=== PATIENT | female | born 1970 | race African-American/Black ===

== ENCOUNTER 2016-11-17 10:33 | Inpatient (IN) | payer OTHER ==
[2016-11-17] VITALS (7 sets, daily range): BP systolic 131–180; BP diastolic 48–100
[~2016-11-17] VITALS: Ht 182.8 cm; Wt 156.0 kg
--- NOTE | ~2016-11-17 | CON ---
[place], [place] REPORT OF CONSULTATION NAME: JM COLUNGA [facility] #: [id number] UNIT #: [id number] ROOM: 428 DOCTOR: FRED PRATT MD BIRTHDATE: [birth year] DOS: 11/18/2016 CONSULTING PHYSICIAN: Misty Yuen D.O. PRIMARY CARE PHYSICIAN: Camilla Hall D.O. REASON FOR CONSULTATION: Chest pain. HISTORY OF PRESENT ILLNESS: This is a 46-year-old patient with history of hypertension, dyslipidemia, obesity, acid reflux; came to the Emergency Room with chest pain. Her pain started about one and half days ago prior to her presentation. She described the pain as a sharp pain in the midsternal area that radiated to the right side of her neck and throat area. She also has some associated headache and jaw pain. This pain mostly comes at rest and last for a few minutes up to a few hours. Last night, this pain got worse and finally, she came to the Emergency Room and she was admitted to the hospital and a Cardiology was consulted for her chest pain. She did not have any recent stress test. Her echo, which was done by Dr. Meza showed normal LV function. She also has some occasional heartburn and acid reflux. No nausea, vomiting, diarrhea, no palpitations. No PND or orthopnea. She did have mild exertional dyspnea, possibly due to her obesity. No fever or chills. No cough, no hemoptysis, no headaches. REVIEW OF SYSTEMS: Review of the 8 systems negative except as mentioned above. PAST MEDICAL HISTORY: 1. Hypertension. 2. Dyslipidemia. 3. Obesity. 4. Acid reflux. 5. Bipolar disorder. 6. Sjogren syndrome. 7. Depression. 8. Vitamin D deficiency. PAST SURGICAL HISTORY: History of elbow surgery. SOCIAL HISTORY: The patient does smoke nor does not use any illicit drugs, does drink occasionally. FAMILY HISTORY: Father around 60 from myocardial infarction and also stroke. Mother in her 60s with myocardial infarction. She had hypertension and chronic kidney disease. ALLERGIES: THE PATIENT IS ALLERGIC TO AMLODIPINE AND CLINDAMYCIN. MEDICATIONS: Current medications reviewed. PHYSICAL EXAMINATION: VITAL SIGNS: Blood pressure 162/101, pulse 98, respiratory rate 18, weight was [place], [place] REPORT OF CONSULTATION NAME: JM COLUNGA UNIT #: [id number] ROOM: 428 DOCTOR: SANTA DAILEY,FRED BIRTHDATE: [birth year] 156.1 kilograms. BMI 46.7. REVIEW OF THE DIAGNOSTIC TESTS: EKG showed normal sinus rhythm, low voltage complexes, poor R-wave progression, and nondiagnostic ST elevation in inferior leads. Labs including cardiac enzymes negative. Hemoglobin 13.3, platelets 193. Creatinine 1.2, potassium 3.7. IMPRESSION: 1. Chest pain, atypical, myocardial infarction ruled out. 2. Hypertension. I will adjust the medication for blood pressure. 3. Tobacco smoking. 4. Dyslipidemia. 5. Morbid obesity. 6. Acid reflux and abdominal pain. 7. Sjogren syndrome. 8. History of bipolar disorder. RECOMMENDATIONS: Continue current medications. Lexiscan stress test today. Monitor her blood pressures and adjust the medications as needed. Aggressive risk factor modification for diet, exercise, weight loss, as well as to quit smoking discussed. Further recommendations based on above testing. If the stress test is unremarkable, she was scheduled for upper endoscopy due to her symptoms of abdominal pain and acid reflux. Thank you, Dr. Yuen, for asking us to see this patient and we will follow the case along with you. FRED PRATT MD CM:CONSTR:REPORT OF CONSULTATION 2328 11/19/16 1014 interface
--- NOTE | ~2016-11-17 | ST ---
[place], [place] EXERCISE STRESS TEST REPORT NAME: JM COLUNGA LOCATED [facility]IN [facility] #: [id number] UNIT #: [id number] ROOM: 428 DOCTOR: SANTA DAILEY,FRED BIRTHDATE: [birth year] DOS: 11/18/2016 LEXISCAN STRESS TEST REASON FOR TEST: Evaluation of chest pain. PHYSICAL EXAMINATION NECK: Supple. LUNGS: Clear anteriorly. HEART: Regular rhythm. PROTOCOL: Lexiscan protocol. Maximum heart rate 87, peak blood pressure 136/90. SYMPTOMS: The patient is chest pain free. EKG: Resting EKG shows sinus rhythm with poor R-wave progression. The stress EKG showed no ischemia, no arrhythmias. CONCLUSION: Clinically, the patient is chest pain free. EKG, no ischemia. POST-STRESS COMPLICATIONS: None. The patient received a total of 0.4 mg Lexiscan. FRED PRATT MD CM:STRESS:EXERCISE STRESS TEST REPORT [id number] FRED PRATT MD
--- NOTE | ~2016-11-17 | CON ---
[place], [place] RE[facility] OF CON[facility]ATION [id number] #: [id number] ROOM: 428 DOCTOR: JOSE DAILEYFABIOSUE BIRTHDATE: [birth year] DOS: 11/18/2016 HISTORY OF PRESENT ILLNESS: This is a 46-year-old patient who has presented with chief complaint of epigastric abdominal pain consistent with atypical chest pain; however, she has to have myocardial evaluation done to assure there is no cardiac element and her myocardial perfusion scan in summary shows no evidence of ischemia. Ejection fraction 65%. Troponin was negative. CPK-MB and troponin was reassessed. Chest x-ray was no acute process. Comprehensive metabolic panel, BUN and creatinine 7 and 1.20. Electrolytes were balanced. Liver function tests and troponin were negative. INR was 0.7. CBC, white blood cells 5.6, H and H of 13 and 39. Differential within normal limits. PAST MEDICAL HISTORY: Associated with morbid obesity, hyperlipidemia, hypertension, atypical chest pain, gastroesophageal reflux, and bipolar disorder. PAST SURGICAL HISTORY: Elbow repair. SOCIAL HISTORY: Smoker and consumer of 6-8 cans of carbonated soda pam hoda. FAMILY HISTORY: Noncontributory except cardiac issues of myocardial infarction, hypertension. ALLERGIES: Norvasc and clindamycin. REVIEW OF MEDICATIONS: Consistent with iron supplementation and other medications as reviewed including Prilosec 40 mg daily as well as Zofran b.i.d. for nausea. REVIEW OF SYSTEMS: HEENT: Denies double vision, blurred vision. RESPIRATORY: Denies acute shortness of breath. CARDIOVASCULAR: Denies acute chest pain. DIGESTIVE SYSTEM: Epigastric abdominal pain, nausea, constipation, atypical chest pain. PHYSICAL EXAMINATION: HEENT: Head normocephalic, nontraumatic. Mouth and buccal mucosa benign. NECK: Supple, no thyromegaly, no cervical lymphadenopathy. CHEST: Symmetric anatomy, equal expansion. No wheeze, no rhonchi. ABDOMEN: Soft. No hepato-organomegaly. Epigastric distress. Bowel sounds present. No pulsatile mass. Abdomen is large, obese, internal organs were difficult to assess in general. EXTREMITIES: No cyanosis, no pedal edema. Dorsalis pedis and radial pulses intact. NEUROLOGIC: Alert, oriented to time, place, person. IMPRESSION: Atypical chest pain, ruling out hiatal hernia, gastroesophageal reflux, morbid obesity, hypertension, hyperlipidemia, nicotine dependency, [place], [place] REPORT OF CONSULTATION NAME: JM COLUNGA UNIT #: [id number] ROOM: 428 DOCTOR: BRANDON GARCIA MD BIRTHDATE: [birth year] consumer of large volume of carbonated sodas, bipolar disorder. PLAN AND DISCUSSION: We are going to consider endoscopic assessment on this patient. Meanwhile, we are preplanning as far as constipation is concerned, future assessment with sonographic evaluation of the gallbladder, liver, pancreas as well as colonoscopic assessment as outpatient. BRANDON GARCIA MD CM:CONSTR:REPORT OF CONSULTATION 1639 11/19/16 0500 interface
--- NOTE | ~2016-11-17 | O ---
[place], [place] OPERATIVE NOTE [id number] UNIT #: [id number] ROOM: 428 DOCTOR: BRANDON GARCIA MD BIRTHDATE: [birth year] DOS: 11/18/2016 INDICATIONS: This is a 46-year-old patient who was presented with chief complaint of epigastric abdominal pain, nausea, atypical chest pain, dyspepsia. The patient has been on Protonix and multiple medications. The patient with morbid obesity history, reflux symptomatology. PROCEDURE: Today's procedure part of investigation is panendoscopy plus biopsy. PREMEDICATION: Versed and Diprivan. SCOPE: Olympus forward-viewing gastroscope Q10 video. REPORT: After putting the patient in the left lateral position and after application of lubricant to the scope, the scope was introduced thereafter under direct visualization. I advanced through the length of the esophagus without difficulty. Small hiatal hernia was noticed. Gastric pouch was entered. Gastritis seen in the duodenal bulb, duodenitis and small duodenal ulcers noticed, photographed, biopsied. The patient was gradually extubated and tolerated the procedure well. IMPRESSION: Duodenal ulcers, small. Gastritis, mild. Small hiatal hernia. PLAN AND DISCUSSION: We are going to switch her from omeprazole 40 mg a day to Protonix 40 mg daily. Elevation of the head of the bed all time. Avoiding late eating. Gaviscon 2 tablets chew at bedtime and follow up routinely with you in office, p.r.n. visit with us in GI Clinic. Supportive management and workup as outpatient. BRANDON GARCIA MD CM:OPRECORD:OPERATIVE NOTE 1813 32 BRANDON GARCIA MD 11/18/162231 interface
[~2016-11-17 10:33] MED LIST: ALBUTEROL0.09 MG/Ac INH; ASPIRIN81 MG PO; AUGMENTIN 875 M1 TAB PO; CLINDAMYCIN HC300 MG PO; FIORICET 325 MG1 TAB PO; GABAPENTIN100 MG PO; GABAPENTIN600 MG PO; LATU40TA PO; LIPITOR20 MG PO; LISINOPRIL30 MG PO; LITHIUM CARBON450 M1 PO; LOMOTIL 0.025 M1 TA1 PO; LOPRESSOR25 MG PO; MACROBID100 M1 PO; MELOXICAM15 MG PO; MOTRIN800 MG PO; NORCO 5-325 TA1 EACH PO; POTASSIUM CITR10 MEQ PO; PRILOSEC40 M1 PO; SEROQUEL200 MG PO; SPIRONOLACT; VITAMIN D50000 IU PO; WELLBUTRIN SR150 MG PO; WELLBUTRIN XL150 MG PO; ZANAFLEX2 M1 PO; ZANTAC150 MG PO; ZOFRAN ODT4 MG SL
[2016-11-17] MEDS ORDERED: LYRICA50 M1 PO (10:37)
[2016-11-17 11:04] LABS: BASO % 0.4 % (0.0-1.0); EOS # 0.2 10*3/uL (0.0-0.4); HEMOGLOBIN 13.3 g/dl (12.0-16.0); LYMPH # 1.8 10*3/uL (1.3-4.4); LYMPH % 32.5 % (27.0-41.0); MEAN CELL VOLUME 89.7 fl (81.0-99.0); MEAN CORPUSCULAR HGB 30.6 pg (27.0-31.0); MEAN CORPUSCULAR HGB CONC 34.1 g/dl (33.0-37.0); MEAN PLATELET VOLUME 12.1 fl (9.6-12.3); MONO # 0.4 10*3/uL (0.1-1.0); MONO % 6.2 % (3.0-9.0); NEUT # 3.2 10*3/uL (2.3-7.9); NEUT % 57.5 % (47.0-73.0); PLATELET COUNT AUTOMATED 193 10*3/uL (130-400); RED BLOOD COUNT 4.35 10*6/uL (4.10-5.10); RED CELL DISTRI WIDTH 13.3 % (0-14.5); WHITE BLOOD COUNT 5.6 10*3/uL (4.8-10.8)
[2016-11-17 11:13] LABS: INTERNATIONAL NORM RATIO 0.9 (2.0-3.5)
[2016-11-17 11:22] LABS: ALBUMIN 3.1 gm/dl (3.1-4.5); ALKALINE PHOSPHATASE 112 U/L (45-117); BILIRUBIN, TOTAL 0.3 mg/dl (0.2-1.0); BUN 7 mg/dl (7-24); CARBON DIOXIDE 25 mmol/L (21-32); CHLORIDE 112 mmol/L (98-107); EST GLOM FILT AFRICAN AMERICAN 59 ml/min; GLUCOSE 92 mg/dL (65-99); MAGNESIUM 1.9 mg/dL (1.5-2.1); POTASSIUM 3.7 mmol/L (3.5-5.1); SGOT/AST 14 IU/L (3-35); SGPT/ALT 24 U/L (12-78); SODIUM 144 mmol/L (136-145); TOTAL PROTEIN 6.1 gm/dL (6.4-8.2); TROPONIN I < 0.015 ng/ml (<0.5)
[2016-11-17] MEDS ORDERED: VITAMIN D-32000 UNI1 PO (13:06)
[2016-11-17] MEDS ORDERED: IRON325 M2 PO (13:11)
[2016-11-17] MEDS ORDERED: ZOFRAN4 MG PO (13:12)
[2016-11-17] MEDS ORDERED: NORCO 5-325 TA1 EACH PO (13:12)
[2016-11-17] MEDS ORDERED: FIORICET 50-301 EACH PO (13:13)
[2016-11-17] MEDS ORDERED: Meclizine25 MG PO (13:14)
[2016-11-17] MEDS ORDERED: PROAIR HFA8.5 GM INH (13:15)
[2016-11-17] MEDS ORDERED: ALDACTONE25 MG PO (13:16)
[2016-11-17 18:49] LABS: CPK 51 U/L (26-192)
[2016-11-17 18:53] LABS: CKMB < 0.5 ng/ml (0.5-3.6); TROPONIN I < 0.015 ng/ml (<0.5)
[2016-11-18] VITALS (7 sets, daily range): BP systolic 138–166; BP diastolic 59–101
[2016-11-19] VITALS: BP 122/72
[2016-11-19 06:26] LABS: BUN 9 mg/dl (7-24); CARBON DIOXIDE 21 mmol/L (21-32); CHLORIDE 113 mmol/L (98-107); EST GLOM FILT AFRICAN AMERICAN > 60 ml/min; GLUCOSE 82 mg/dL (65-99); POTASSIUM 4.2 mmol/L (3.5-5.1); SODIUM 144 mmol/L (136-145)
[2016-11-19 08:00] VITALS: BP 135/72
[2016-11-19 12:00] VITALS: BP 128/86
[2016-11-19] MEDS ORDERED: GAVISCON 80 MG-1 CT1 PO (13:20)
== END 2016-11-19 15:15 | disposition home or self-care (01) | DRG 392 ==
LOC: ED 10:33 → EDHOLD 12:07 → 4E 12:07
PROVIDERS: Internal Medicine; Internal Medicine Cardiovascular Disease; Student in an Organized Health Care Education/Training Program
PROC: 0DB68ZX Excision of Stomach, Via Natural or Artificial Opening Endoscopic, Diagnostic (ICD-10-PCS; principal; 2016-11-18)
DX: K21.9 Gastro-esophageal reflux disease without esophagitis (principal); E44.0 Moderate protein-calorie malnutrition; K26.9 Duodenal ulcer, unspecified as acute or chronic, without hemorrhage or perforation; Z68.42 Body mass index [BMI] 45.0-49.9, adult; E66.01 Morbid (severe) obesity due to excess calories; M35.00 Sjogren syndrome, unspecified; F31.81 Bipolar II disorder; I10 Essential (primary) hypertension; E78.00 Pure hypercholesterolemia, unspecified; F17.200 Nicotine dependence, unspecified, uncomplicated; F31.9 Bipolar disorder, unspecified; E55.9 Vitamin D deficiency, unspecified; K29.70 Gastritis, unspecified, without bleeding; K44.9 Diaphragmatic hernia without obstruction or gangrene; Z88.8 Allergy status to other drugs, medicaments and biological substances; Z88.1 Allergy status to other antibiotic agents; Z79.82 Long term (current) use of aspirin; Z79.899 Other long term (current) drug therapy; Z82.49 Family history of ischemic heart disease and other diseases of the circulatory system; Z98.890 Other specified postprocedural states; Z82.3 Family history of stroke; Z84.1 Family history of disorders of kidney and ureter

== ENCOUNTER → 2017-03-19 | Outpatient (CLI) | payer OTHER ==
[~2017-03-19] MED LIST changes: +ALDACTONE25 MG PO; +FIORICET 50-301 EACH PO; +GAVISCON 80 MG-1 CT1 PO; +IRON325 M2 PO; +LYRICA50 M1 PO; +Meclizine25 MG PO; +PROAIR HFA8.5 GM INH; +VITAMIN D-32000 UNI1 PO; +ZOFRAN4 MG PO
== END | disposition home or self-care (01) ==
LOC: CARD 08:24
DX: Z01.818 Encounter for other preprocedural examination (principal); I10 Essential (primary) hypertension; I51.7 Cardiomegaly

== ENCOUNTER → 2018-05-27 | Outpatient (CLI) | payer OTHER | END | disposition home or self-care (01) | LOC: LAB 07:14 | DX: F31.75 Bipolar disorder, in partial remission, most recent episode depressed (principal) ==

== ENCOUNTER 2018-11-18 09:25 | Emergency (ER) | payer OTHER ==
[~2018-11-18] VITALS: Ht 182.8 cm; Wt 160.6 kg
--- NOTE | ~2018-11-18 | EKG ---
[place], [place] ELECTROCARDIOGRAM REPORT NAME: JM COLUNGA UNIT #: [id number] ROOM: DOCTOR: EPIPHANY DRAFT REPORT BIRTHDATE: [birth year] [facility] Test Date: 2018-11-18 Test Time: 09:53:04 Pat Name: JM COLUNGA Department: Room: Gender: F Production Weigher: Nani Soriano : 1970 Requested By: HUDSON RODGERS Order Number: [id number] Reading MD: Meño Meza MD Measurements Intervals [place] Rate: 72 P: 56 ME: 201 QRS: 35 QRSD: 79 T: 51 QT: 390 QTc: 427 Interpretive Statements Sinus rhythm Low voltage, precordial leads Electronically Signed On 11-19-2018 11:23:38 PST by Meño Meza MD CM:EKGRPT:ELECTROCARDIOGRAM REPORT [id number] HUDSON BARGER DRAFT REPORT HUDSON RODGERS MD
[2018-11-18 10:08] LABS: BUN 9 mg/dl (7-24); CHLORIDE 113 mmol/L (98-107); CREATININE 1.06 mg/dL (0.55-1.02); POTASSIUM 3.6 mmol/L (3.5-5.1); SODIUM 143 mmol/L (136-145)
[2018-11-18 10:09] LABS: TROPONIN I < 0.015 ng/ml (<0.045)
[2018-11-18 10:24] LABS: BILIRUBIN NEGATIVE (NEGATIVE); BLOOD 2+ (NEGATIVE); CLARITY SL CLOUDY (CLEAR); COLOR YELLOW (YELLOW); GLUCOSE NEGATIVE (NEGATIVE); KETONE NEGATIVE (NEGATIVE); LEUKO ESTERASE TRACE (NEGATIVE); NITRITE NEGATIVE (NEGATIVE); SPECIFIC GRAVITY <= 1.005 (1.005-1.030); UROBILINOGEN 0.2 E.U./dl (0.2-1.0)
[2018-11-18 10:36] LABS: BACTERIA TRACE; EPITHELIAL CELLS 21-30; YEAST TRACE
== END 2018-11-18 10:33 | disposition home or self-care (01) ==
LOC: ED 09:25
PROVIDERS: Emergency Medicine
DX: I10 Essential (primary) hypertension (principal); E66.01 Morbid (severe) obesity due to excess calories; Z88.1 Allergy status to other antibiotic agents; Z88.8 Allergy status to other drugs, medicaments and biological substances; Z79.899 Other long term (current) drug therapy; Z79.82 Long term (current) use of aspirin; Z68.42 Body mass index [BMI] 45.0-49.9, adult

== ENCOUNTER → 2018-12-07 | Outpatient (CLI) | payer OTHER ==
[~2018-12-07] MED LIST changes: +CLARITIN10 MG PO; +COLACE 2-IN-11 EACH PO; +LITHIUM CARB300 MG PO; +MOBIC15 MG PO; +OXYCODONE HYDROC5 MG PO; +Ondansetron4 MG PO; +PRILOSEC20 M1 PO; -PRILOSEC40 M1 PO; +TYLENOL325 M3 PO
== END | disposition home or self-care (01) ==
LOC: US 09:30
DX: I10 Essential (primary) hypertension (principal)

== ENCOUNTER 2019-01-30 19:36 | Inpatient (IN) | payer OTHER ==
[~2019-01-30] VITALS: Ht 167.6 cm; Wt 159.4 kg
--- NOTE | ~2019-01-30 | CON ---
[place], [place] REPORT OF CONSULTATION [id number] UNIT #: [id number] ROOM: 420 DOCTOR: HERMINIA PHD RYAN BIRTHDATE: [birth year] DOS: 02/04/2019 HISTORY OF PRESENT ILLNESS: The patient is a 48-year-old female referred by the hospitalist with concerns for catatonic behavior and appropriateness for inpatient psychiatric treatment. At the present time, the patient is on the 4th floor at [facility]. The patient states that she is and has one daughter. She is on disability for her history of intermittent explosive disorder and bipolar disorder. She sees Dr. aBr for this regularly. She denied alcohol and illegal drug use. She smokes 1 pack of cigarettes per week. PAST MEDICAL HISTORY: Bipolar 2 disorder, chronic kidney disease, duodenal ulcer, GERD, hypertension, hyperlipidemia, intermittent explosive disorder, major depression, morbid obesity, Sjogren syndrome, and vitamin D deficiency. MEDICATIONS: Dulcolax, Zofran, Wellbutrin-XL, Lipitor, Feosol, Ventolin, Prilosec, Claritin, vitamin D, Lopressor, aspirin, heparin, and Tylenol. MENTAL STATUS EXAMINATION: The patient was awake, alert, and lying in bed in no apparent distress. She was oriented to person and could name the year. Her mood was depressed and affect was blunted. She denied suicidal and homicidal ideation, plan, and intent. She denied history of inpatient psychiatric treatment. Speech was slow and she often responded with one word answers or nonverbally expressive. At times, the patient did not respond appropriately to questions and appeared confused. There was no evidence of hallucinations or delusions. There is no evidence of virgie. The patient denied a history of psychosis. The patient's roommate was present in the room and the patient indicated she wished her roommate stay. Her roommate often spoke for the patient and was reminded to let the patient answered for herself. The patient's roommate took me aside after the evaluation and stated that the patient's boyfriend broke up with her in November and got the next day. She found this information out on Facebook and has not talked to the patient about this. The patient had been in a relationship with her boyfriend for 5 years. Roommate thinks the patient has been depressed since that time. The patient's roommate states she has been regularly attending her therapy appointments and medication appointments at Dr. Bar' office except she has not seen him since she had knee surgery last month. The patient denies a need or desire for further psychiatric interventions at this time. DIAGNOSIS: Status bipolar 2 disorder, intermittent explosive disorder. PLAN: The patient is denying suicidal ideation, plan, and intent at this time; however, she continues to eat very little and appears to be neglecting her ADLs. Given that the patient is not seeking inpatient treatment at this time and is not suicidal, inpatient psychiatric treatment may not be appropriate for the patient at this time; however, she is engaging in self-injurious behaviors by not eating and would benefit from continued observation to ensure adequate nutrition. In my opinion, the patient's discharge plan to [facility] may be most beneficial at this time to continue to improve her physical functioning following her surgery and to continue to monitor her food intake and [place], [place] REPORT OF CONSULTATION NAME: JM COLUNGA UNIT #: [id number] ROOM: 420 DOCTOR: HERMINIA, PHD RYAN BIRTHDATE: [birth year] to continue to assess for risk of harm to self. Thank you very much for this consult. Veronica Murphy, PhD CM:CONSTR:REPORT OF CONSULTATION 1806 02/05/19 0120 interface
--- NOTE | ~2019-01-30 | EKG ---
[place], [place] ELECTROCARDIOGRAM REPORT NAME: JM COLUNGA UNIT #: [id number] ROOM: 420 DOCTOR: CHARBEL DRAFT REPORT BIRTHDATE: [birth year] [facility] Test Date: 2019-01-30 Test Time: 20:24:52 Pat Name: JM COLUNGA Department: Room: 420 Gender: F Mica Sizer: EKG.RI : 1970 Requested By: REGINALD DAVIS PA-C Order Number: [id number] Reading MD: Tierra Orellana MD Measurements Intervals [place] Rate: 94 P: 61 LA: 189 QRS: 30 QRSD: 96 T: 30 QT: 361 QTc: 452 Interpretive Statements Sinus rhythm Compared to ECG 11/18/2018 09:53:04 No significant changes Electronically Signed On 01-31-2019 17:38:57 PDT by Tierra Orellana MD CM:EKGRPT:ELECTROCARDIOGRAM REPORT 23 37 REGINALD DAVIS PA-C EPIPHANY DRAFT REPORT REGINALD DAVIS PA-C
[~2019-01-30 19:36] MED LIST changes: -CLARITIN10 MG PO; -COLACE 2-IN-11 EACH PO; -LITHIUM CARB300 MG PO; -MOBIC15 MG PO; -OXYCODONE HYDROC5 MG PO; -Ondansetron4 MG PO; -TYLENOL325 M3 PO
[2019-01-30 19:56] VITALS: BP 80/42
--- NOTE | 2019-01-30 20:00 | NUR ---
UNABLE TO ESTABLISED AN IV, SEVERAL ATTEMPTS HAVE BEEN MADE BY SEVERAL RN"S AND RESIDENT. WAITING FOR LAB RESULTS TO DETERMINE IF MLC IS NEEDED.
[2019-01-30 20:30] VITALS: BP 100/62
--- NOTE | 2019-01-30 21:30 | NUR ---
LAB IS MAKING SEVERAL ATTEMPTS TO DRAW BLOOD FOR LABS. A SMALL AMOUNT WAS OBTAINED.
--- NOTE | 2019-01-30 22:01 | NUR ---
PT IS STARTING TO WAKE UP A LITTLE AND IS NOT CONFUSED AT THIS TIME.
--- NOTE | 2019-01-30 22:24 | NUR ---
PT RESTING QUIETLY, VOICES NO COMPLAINTS. LAB WAS ABLE TO OBTAIN THE LABS.
[2019-01-30 22:36] LABS: BASO % 0.4 % (0.0-1.0); EOS # 0.4 10*3/uL (0.0-0.4); EOS % 5.1 % (1.0-4.0); HEMOGLOBIN 13.1 g/dl (12.0-16.0); LYMPH # 2.5 10*3/uL (1.3-4.4); LYMPH % 30.1 % (27.0-41.0); MEAN CORPUSCULAR HGB 30.7 pg (27.0-31.0); MEAN PLATELET VOLUME 13.3 fl (9.6-12.3); MONO # 0.5 10*3/uL (0.1-1.0); MONO % 5.6 % (3.0-9.0); NEUT # 4.8 10*3/uL (2.3-7.9); NEUT % 58.4 % (47.0-73.0); PLATELET COUNT AUTOMATED 205 10*3/uL (130-400); RED BLOOD COUNT 4.27 10*6/uL (4.10-5.10); RED CELL DISTRI WIDTH 14.5 % (0-14.5); WHITE BLOOD COUNT 8.2 10*3/uL (4.8-10.8)
[2019-01-30 22:39] LABS: ALBUMIN 3.6 gm/dl (3.1-4.5); ALKALINE PHOSPHATASE 117 U/L (45-117); BUN 39 mg/dl (7-24); CHLORIDE 120 mmol/L (98-107); CREATININE 3.21 mg/dL (0.55-1.02); SGOT/AST 30 IU/L (3-35); SGPT/ALT 20 U/L (12-78); SODIUM 143 mmol/L (136-145); TOTAL PROTEIN 7.5 gm/dL (6.4-8.2)
[2019-01-30 22:40] LABS: ACETAMINOPHEN (TYLENOL) < 5.0 ug/ml (10-30); SALICYLATE (ASA) < 1.7 mg/dl (2.8-20.0); TROPONIN I < 0.015 ng/ml (<0.045)
[2019-01-30 22:56] LABS: LITHIUM 1.98 MMOL/L (0.60-1.20)
[2019-01-31 01:29] VITALS: BP 100/58
[2019-01-31 01:49] VITALS: BP 109/57
--- NOTE | 2019-01-31 01:49 | NUR ---
A 48, admitted to , under the services of YOHAN You DO with a diagnosis of ACUTE RENAL FAILURE. Chief complaint is CHANEG IN MENTAL STATUS. Patient arrived via ambulance from ER. Monitor applied. Initial assessment completed. Vital signs taken and recorded. YOHAN YOU DO notified of admission to the unit. Orders received. See assessment for past medical history, medications and allergies. Patient and/or family oriented to unit. [facility] visitation policy reviewed. Clothing/patient valuable form completed. NA PITTS
[2019-01-31] MEDS ORDERED: COLACE 2-IN-11 EACH PO (02:00)
[2019-01-31] MEDS ORDERED: CLARITIN10 MG PO (02:01)
[2019-01-31] MEDS ORDERED: TYLENOL325 M3 PO (02:02)
[2019-01-31] MEDS ORDERED: OXYCODONE HYDROC5 MG PO (02:05)
[2019-01-31] MEDS ORDERED: Ondansetron4 MG PO (02:08)
[2019-01-31] MEDS ORDERED: PROAIR HFA8.5 GM INH (02:09)
[2019-01-31] MEDS ORDERED: MOBIC15 MG PO (02:10)
--- NOTE | 2019-01-31 03:15 | NUR ---
STRAIGHT CATHED FOR 6OCC, DARK YELLOW, CLOUDY. URINE SENT TO LAB PER ORDERS.
[2019-01-31 03:27] LABS: BILIRUBIN 2+ (NEGATIVE); BLOOD NEGATIVE (NEGATIVE); CLARITY CLEAR (CLEAR); COLOR YELLOW (YELLOW); GLUCOSE NEGATIVE (NEGATIVE); KETONE 1+ (NEGATIVE); LEUKO ESTERASE NEGATIVE (NEGATIVE); NITRITE NEGATIVE (NEGATIVE); PH 5.5 (5.0-9.0); SPECIFIC GRAVITY >= 1.030 (1.005-1.030)
[2019-01-31 03:35] LABS: BACTERIA 2+; HYALINE CAST 16-20; MUCOUS 2+; URINE AMPHETAMINES < 1000 (1000ng/ml); URINE BARBITURATES < 200 (200ng/ml); URINE BENZODIAZEPINES < 200 (200ng/ml); URINE CANNABINOIDS (THC) < 50 (50ng/ml); URINE COCAINE < 300 (300ng/ml); URINE METHADONE < 300 (300ng/ml); URINE OPIATES > 300 (300ng/ml)
[2019-01-31 03:36] LABS: URINE PHENCYCLIDINE < 25 (25ng/ml)
--- NOTE | 2019-01-31 05:56 | NUR ---
ATTEMPTED TO CALL [facility]. NO ANSWER. WILL TRY AGAIN.
[2019-01-31 06:27] LABS: BASO % 0.4 % (0.0-1.0); EOS # 0.3 10*3/uL (0.0-0.4); EOS % 4.5 % (1.0-4.0); LYMPH # 2.7 10*3/uL (1.3-4.4); LYMPH % 36.8 % (27.0-41.0); MEAN CELL VOLUME 96.8 fl (81.0-99.0); MEAN CORPUSCULAR HGB 29.9 pg (27.0-31.0); MEAN CORPUSCULAR HGB CONC 30.8 g/dl (33.0-37.0); MEAN PLATELET VOLUME 13.9 fl (9.6-12.3); MONO # 0.5 10*3/uL (0.1-1.0); MONO % 7.3 % (3.0-9.0); NEUT # 3.7 10*3/uL (2.3-7.9); NEUT % 50.6 % (47.0-73.0); PLATELET COUNT AUTOMATED 153 10*3/uL (130-400); RED BLOOD COUNT 3.45 10*6/uL (4.10-5.10); RED CELL DISTRI WIDTH 14.6 % (0-14.5); WHITE BLOOD COUNT 7.3 10*3/uL (4.8-10.8)
[2019-01-31 06:29] LABS: HEMATOCRIT 33.4 % (37.0-47.0); HEMOGLOBIN 10.3 g/dl (12.0-16.0)
[2019-01-31 06:40] LABS: CREATININE 2.39 mg/dL (0.55-1.02); PHOSPHOROUS 3.3 mg/dL (2.5-4.9)
[2019-01-31 06:46] LABS: THYROID STIM HORMONE (HS) 1.18 uIU/ml (0.358-4.75)
[2019-01-31 06:49] LABS: POTASSIUM 4.6 mmol/L (3.5-5.1)
--- NOTE | 2019-01-31 07:43 | NUR ---
G LEFT WITH 'S ANSWERING SERVICE REGARDING NEW CONSULT. AWAITING CALL BACK.
--- NOTE | 2019-01-31 07:48 | NUR ---
LUCIEN JAVED CALLED FOR SUICIDE RISK. LEFT MESSAGE. AWAITING CALL BACK.
--- NOTE | 2019-01-31 09:52 | NUR ---
DR. GARCIA MADE AWARE MEDS NEEDS ORDERED.
[2019-01-31 12:00] VITALS: BP 119/56
--- NOTE | 2019-01-31 14:00 | NUR ---
RESTING IN BED WITH VISITORS AT HER SIDE. CALL LIGHT IN REACH.
[2019-01-31 16:00] VITALS: BP 126/69
--- NOTE | 2019-01-31 16:30 | NUR ---
TOELRATED ROUTINE MED WITH NO PROBLEM. DROWSY. REPOSITIONED IN BED. CALL LIGHT IN REACH. SEE SHIFT ASSESSMENT.
[2019-01-31 20:00] VITALS: BP 112/55
--- NOTE | 2019-01-31 23:56 | NUR ---
24HR CHART CHECK COMPLETED.
[2019-02-01] VITALS: BP 124/52
--- NOTE | 2019-02-01 04:01 | NUR ---
INCONTINENT IN BED, SHEETS WET WITH URINE. IN MIDDLE OF CHANGING THE BED LINEN, PT STATES SHE HAD TO USE THE RESTROOM. ASSISTED TO THE RESTROOM BY TWO RNs AND USE OF WALKER. PT WAS SLOW AND STATES HER KNEES FELT STIFF. NO INCIDENTS OCCURED. SOME SOB NOTED ONCE RETURNING TO BED FROM TOILET. PT DENIED NEED FOR O2. CALL LIGHT IN REACH. BED ALARM ON.
[2019-02-01 06:48] LABS: BASO % 0.3 % (0.0-1.0); EOS # 0.3 10*3/uL (0.0-0.4); EOS % 4.7 % (1.0-4.0); HEMATOCRIT 31.9 % (37.0-47.0); HEMOGLOBIN 9.9 g/dl (12.0-16.0); LYMPH # 2.4 10*3/uL (1.3-4.4); LYMPH % 34.6 % (27.0-41.0); MEAN CELL VOLUME 95.5 fl (81.0-99.0); MEAN CORPUSCULAR HGB 29.6 pg (27.0-31.0); MEAN PLATELET VOLUME 13.2 fl (9.6-12.3); MONO # 0.4 10*3/uL (0.1-1.0); MONO % 6.1 % (3.0-9.0); NEUT # 3.8 10*3/uL (2.3-7.9); PLATELET COUNT AUTOMATED 134 10*3/uL (130-400); RED BLOOD COUNT 3.34 10*6/uL (4.10-5.10); RED CELL DISTRI WIDTH 13.9 % (0-14.5)
[2019-02-01 07:19] LABS: POTASSIUM 4.3 mmol/L (3.5-5.1)
[2019-02-01 07:20] LABS: CREATININE 1.52 mg/dL (0.55-1.02)
--- NOTE | 2019-02-01 07:52 | NUR ---
KEANUJM [id number] Please refer to the physician's history and physical for past medical history, comorbid conditions, and allergies. Diagnosis: ACUTE RENAL FAILURE Michael Score: 16,AT RISK WOUND DESCRIPTIONS: Location of the wound: right knee Type of wound: surgical Thickness: Full Size: 17.5cm x 0.2cm x <0.1cm Tunneling: none Undermining: none Sinus Tract: none Presence of Exudate: none Amount: None Color: Alston Odor: None Periwound Skin Appearance: Normal Wound edges: approximated with 1 suture distal end of incision Pain (associated with wound): none at time of assessment How does patient state this happened? pt unable to state how this happen. lady at bedside stated she had surgery on the 8 and has a follow up appointment about the suture. Surface the patient is resting on: Isoflex SKIN PREVENTION RECOMMENDATION: 1. Pressure redistribution support surface as appropriate 2. Elevate heels 3. Remove boots/TEDS every shift and reapply 4. Head of bed 30 degrees as tolerated 5. Assess nutrition and hydration 6. Manage moisture 7. Avoid the use of containment devices while in bed 8. Use absorptive products on surfaces limit layers of linens on bed 9. Turn and reposition every 1-2 hours in bed and every 1 hour in chair as tolerated 10. Weight shifts every 15 minutes while up in chair 11. Offloading with pillows or device to keep heels elevated off bed 12. Monitor skin at least every shift 13. Inspect under medical devices twice a day
[2019-02-01 08:00] VITALS: BP 116/50
--- NOTE | 2019-02-01 08:30 | NUR ---
PT ASSISTED TO BATHROOM WITH WALKER. ASSISTED BACK TO BED. TOLERATED WELL, SLOW TO WALK. SITTING UP IN BED EATING BREAKFAST. TOLERATED ROUTINE MED WITH NO PROBLEM. VISITOR AT HER SIDE. CALL LIGHT IN REACH. SEE SHIFT ASSESSMENT.
--- NOTE | 2019-02-01 09:17 | NUR ---
Nursing referral received and Occupational Therapy referral also received. Thank you. Marva Vera OTR/l
--- NOTE | 2019-02-01 09:19 | NUR ---
PHYSICAL THERAPY Nursing screen received. PT orders also received. Thank you. Trinity Almonte,PT
--- NOTE | 2019-02-01 09:21 | NUR ---
met with client, she denies to me any suicidal ideation, client reports that she has a hx of depression, but that was a long time ago, she is now here for medical issues, she reports this is the first day she has felt a little better. she does not need any intervention at this time and is not a suicide risk.
--- NOTE | 2019-02-01 10:59 | NUR ---
Patient asleep and significant other in room requesting OT return at a later time. Marva Vera OTR/L
--- NOTE | 2019-02-01 11:42 | NUR ---
PHYSICAL THERAPY PAtient sleeping. PAtient did not arouse with several verbal attempts. Family presents requested to let patient sleep at this time. Will attempt at a later time or date. Thank you for this referral. Trinity Almonte,PT
[2019-02-01 12:00] VITALS: BP 110/54
--- NOTE | 2019-02-01 12:22 | NUR ---
In to see patient to discuss discharge plans. Patients girlfriend at bedside. patient very tired, opened eyes and sat up in bed but girlfriend did all of the talking, patient nodded head in agreement. They would like referrals sent to [facility] and [facility]. They do not want [facility]. Contacted both facilities and faxed referrals for review; Waiting on patient to be able to work with PT and OT. Will fax when available. Patient will require precert.
--- NOTE | 2019-02-01 13:57 | NUR ---
Patient offered Occupational THerapy evaluation this pm and patient declined at this time and agreed to OT at a later date. Marva Vera OTR/L
--- NOTE | 2019-02-01 14:00 | NUR ---
SLEEPING IN BED. RESP-EASY AND REGULAR. IVF INFUSING WITH NO PROBLEM. CALL LIGHT IN REACH. BED ALARM ON.
--- NOTE | 2019-02-01 14:44 | NUR ---
PHYSICAL THERAPY PAtient refuses PT this date. Thank you for this referral. Trinity Almonte,PT
[2019-02-01 16:00] VITALS: BP 139/70
--- NOTE | 2019-02-01 16:50 | NUR ---
PT RESTING IN BED. RESP-EASY AND REGULAR. SLEEPING IN BED. RESP-EASY AND REGULAR. IVF INFUSING WITH NO PROBLEM. CALL LIGHT IN REACH. SEE SHIFT ASSESSMENT.
--- NOTE | 2019-02-01 19:45 | NUR ---
ASSITED TO BATHROOM WITH WALKER. TOLERATED ROUTINE MED WITH NO PROBLEM. CALL LIGHT IN REACH.
[2019-02-01 20:00] VITALS: BP 124/48
--- NOTE | 2019-02-01 23:40 | NUR ---
PT. GIVEN ZOFRAN AT 2341 ORDERED FOR NAUSEA. DAVID MASCORRO RN
[2019-02-02] VITALS: BP 136/72
[2019-02-02 06:45] LABS: BASO % 0.3 % (0.0-1.0); EOS # 0.2 10*3/uL (0.0-0.4); EOS % 3.2 % (1.0-4.0); HEMATOCRIT 31.9 % (37.0-47.0); HEMOGLOBIN 10.4 g/dl (12.0-16.0); LYMPH # 2.1 10*3/uL (1.3-4.4); MEAN CELL VOLUME 94.4 fl (81.0-99.0); MEAN CORPUSCULAR HGB 30.8 pg (27.0-31.0); MEAN CORPUSCULAR HGB CONC 32.6 g/dl (33.0-37.0); MEAN PLATELET VOLUME 13.2 fl (9.6-12.3); MONO # 0.4 10*3/uL (0.1-1.0); NEUT # 3.3 10*3/uL (2.3-7.9); NEUT % 54.3 % (47.0-73.0); PLATELET COUNT AUTOMATED 129 10*3/uL (130-400); RED BLOOD COUNT 3.38 10*6/uL (4.10-5.10); RED CELL DISTRI WIDTH 13.9 % (0-14.5)
--- NOTE | 2019-02-02 06:48 | NUR ---
PATIENT MEDICATED WITH IV ZOFRAN PER PRN ORDER FOR C/O NAUSEA. WILL MONITOR EFFECTIVENESS. CALL LIGHT IN REACH.
[2019-02-02 07:16] LABS: CREATININE 1.38 mg/dL (0.55-1.02)
[2019-02-02 08:00] VITALS: BP 122/51; BP 128/66
--- NOTE | 2019-02-02 08:15 | NUR ---
PT RESTING IN BED. RESP-EASY AND REGULAR. VISITOR AT HER SIDE. PT UPSET STOMACHE THIS AM. MEDICATED PER EMAR. IVF INFUSING WITH NO PROBLEM. CALL LIGHT IN REACH. SEE SHIFT ASSESSMENT.
--- NOTE | 2019-02-02 08:33 | NUR ---
[facility] stating they are unable to accept this patient, they are unable to meet her needs. Waiting on review/acceptance from [facility].
--- NOTE | 2019-02-02 08:45 | NUR ---
PHYSICAL THERAPY Patient evaluated on 4, full evaluation to follow. Continue with PT as per plan of care with fall, slow mentation, mod (A) x 2+ and acute debility precautions. Will require SNF. PAtient is high complexity via chart review, tests and evaluation: [id number]. May benefit from psych consult and possible in-patient psych. Thank you for this referral. Trinity Almonte,PT
--- NOTE | 2019-02-02 09:10 | NUR ---
Occupational Therapy evaluation completed on 4 with full eval to follow. Precautions include fall risk;bed alarm,obese, impaired cognition,central line right neck,high complexity level 43725 via chart reveiw, testing and evaluation. Recommend OT per POC and SNf to enable return home with significant other as well as psych consult prior to SNF. Thank you for this referral. Marva Vera OTR/L
--- NOTE | 2019-02-02 10:26 | NUR ---
Faxed therapy evals to [facility] for [facility]. Waiting on acceptance. will require precert.
--- NOTE | 2019-02-02 11:53 | NUR ---
[facility], precert has been started, waiting on auth.
[2019-02-02 12:00] VITALS: BP 120/65
--- NOTE | 2019-02-02 12:00 | NUR ---
RESTING IN BED WITH NO PROBLEM EYES CLOSED. RESP-EASY AND REGULAR. CALL LIGHT IN REACH. BED ALARM ON.
--- NOTE | 2019-02-02 15:49 | NUR ---
PHYSICAL THERAPY informed consent given, pt identified by name and . pt presented supine in bed. supine to sit v/c to initiate movement. seated LAQ AROM x10 v/c proper technique. STS and stand to sit x1 modAx2. Staic standing balance 1 hand on AD 45 sec d/t fatigue, no LOB presented. Walked 12 ft wh walker in [place] back to bed, v/c to turn wh walker. sit to supine SBA with cues to initiate movement. pt required max v/c and response time to questions. Ended treatment pt supine in bed, belongings and call light in reach, bed alarm on. 1:1 treatment with MANAGER RISK MANAGEMENT 13min. ELVIE GALLARDO MANAGER RISK MANAGEMENT
[2019-02-02 16:00] VITALS: BP 124/68
--- NOTE | 2019-02-02 16:40 | NUR ---
PT ASSISTED TO BATHROOM WITH WALKER. INCONTINENT FOR URINE ALL OVER THE FLOOR. FLOOR CLEANED UP AND PT CLEANED. ASSISTED BACK TO BED. CALL LIGHT IN REACH. SEE SHIFT ASSESSMENT. BED ALARM ON.
[2019-02-02 20:00] VITALS: BP 142/88
--- NOTE | 2019-02-02 20:08 | NUR ---
24 HR chart check completed.
--- NOTE | 2019-02-02 21:00 | NUR ---
AWAKE, SLOW TO RESPOND. RESPIRATIONS EASY. LUNGS DIMINISHED, CLEAR. PULSE OX 98% RA. HEALING INCISION NOTED TO RLE WITH A PLASTIC-LIKE STITCH/STRING STICKING OUT AN INCH BELOW INCISION SITE - PER PATIENT'S DAUGHTER, NORM S/P SURGERY. MLC PATENT AND INTACT. CALL LIGHT WITHIN REACH. NO VOICED COMPLAINTS. DAUGHTER PRESENT AT BEDSIDE. BED ALARM MAINTAINED FOR SAFETY
--- NOTE | 2019-02-02 22:00 | NUR ---
VISITING HOURS REVIEWED WITH DAUGHTER WHO STATES THAT PATIENT'S GF DEWAYNE HAS STAYED SINCE ADMISSION AND IS ADAMENT THAT SHE IS STAYING AGAIN THIS NIGHT
[2019-02-03] VITALS: BP 127/53
--- NOTE | 2019-02-03 | NUR ---
RESIDENCE COUNSELOR AWARE THAT GF REMAINS AT BEDSIDE AND HAS BEEN STAYING NIGHTLY SINCE ADMISSION
--- NOTE | 2019-02-03 00:55 | NUR ---
PER GF AT WHO REMAINS AT BEDSIDE DESPITE EDUCATION REGARDING VISITING HOURS, PATIENT MOANING AND C/O BACK PAIN BUT UNABLE TO RATE. MEDICATED WITH TYLENOL PER PRN ORDER. CALL LIGHT WITHIN REACH. WILL MONITOR FOR EFFECTIVENESS
--- NOTE | 2019-02-03 02:00 | NUR ---
EARLIER MEDS APPEAR EFFECTIVE. SLEEPING
--- NOTE | 2019-02-03 06:00 | NUR ---
PATIENT VOMITTED SMALL EMESIS OF BILE. MEDICATED WITH ROUTINE ZOFRAN. WILL MONITOR
--- NOTE | 2019-02-03 06:10 | NUR ---
LABS DRAWN VIA [facility].
[2019-02-03 06:47] LABS: CREATININE 1.3 mg/dL (0.55-1.02); POTASSIUM 3.8 mmol/L (3.5-5.1)
[2019-02-03 08:00] VITALS: BP 129/56
--- NOTE | 2019-02-03 09:00 | NUR ---
case management visits with patient, patient is referred to [facility], special events planner followoing, patient will need a precert prior to going to [facility]hab [facility]
[2019-02-03 12:00] VITALS: BP 128/78
--- NOTE | 2019-02-03 13:51 | NUR ---
PHYSICAL THERAPY informed consent given, pt identified by name and . pt presented supine in bed with family member at bedside. supine to sit SBA max v/c to initiate movement. in sitting pt bent over and put sock on L foot CGA, v/c to try to put on R foot, pt did not demonstrate activity. 5x STS modA 46 sec, max v/c. Static standing balance 1HHA 1min CGA, no LOB presented. walked 16ft 2HHA CGA, v/c for directions, and to lock knee out to avoid knee buckle. Sit to supine SBA max v/c to initiate movement. Ended treatment pt supine in bed, belongings and call light in reach, bed alarm on. 1:1 treatment with CAFETERIA ASSOCIATE 15min. ELVIE GALLARDO CAFETERIA ASSOCIATE
--- NOTE | 2019-02-03 15:19 | NUR ---
Faxed updated clinicals and therapy to [facility] at [facility]. Precert was started, waiting on auth.
[2019-02-03 16:00] VITALS: BP 142/81
[2019-02-03 20:00] VITALS: BP 140/66
[2019-02-04] VITALS: BP 147/67
[2019-02-04 07:37] LABS: CREATININE 1.37 mg/dL (0.55-1.02); POTASSIUM 3.8 mmol/L (3.5-5.1)
[2019-02-04 08:00] VITALS: BP 143/81
--- NOTE | 2019-02-04 08:00 | NUR ---
PT RESTING IN BED, FRIEND AT BEDSIDE. PT REMAINS VERY WITHDRAWN, ALERT, BUT VERY SLOW TO RESPOND AND MINIMAL RESPONSE. FRIEND STATES PT STILL HAS NOT EATEN MUCH, VERY POOR APPETITIE, NO NAUSEA/VOMITING NOTED. PT SHOWS NO SIGNS OF PAIN. CALL LIGHT WITHIN REACH.
[2019-02-04 12:00] VITALS: BP 140/61
--- NOTE | 2019-02-04 12:13 | NUR ---
patient will be going to [facility] when insurance authorization is obtained
--- NOTE | 2019-02-04 13:00 | NUR ---
DR RIVAS MADE AWARE OF PT'S WITHDRAWN STATE AND LACK NUTRITIONAL INTAKE.
--- NOTE | 2019-02-04 14:00 | NUR ---
OT NOTE Pt was seen this P.M. 1:1 for 20 minute OT session. Upon arrival pt was supine in bed. pt identified by name and on wristband. Pt transferred supine to sit EOB with maxA X 2. While sitting EOB pt donned B socks with modA. Multiple sit to stand transfers completed from bed level with maxA X 2. Challenged pt's static standing tolerance needed for increased I in self care tasks and functional transfers. Pt was able to tolerate aprox 30-60 seconds at a time before sitting due to fatigue. Pt then transferred back into bed sit to supine with maxA x 2. Throughout entire session pt had slow rate of performance, was slow to respond, and would not talk when asking yes or no questions. Pt was left supine in bed with call light in hand, tray table in place, and bed alarm activated for safety. Continue with rec D/C plan to SNF. INES Fairchild/Quique
--- NOTE | 2019-02-04 14:05 | NUR ---
PHYSICAL THERAPY informed consent given, pt identified by name and . pt presented supine in bed. uncovered blankets and asked pt to initiate movement to sit up from supine. pt groaned and did not move. supine to sit maxAx2. STS and stand to sit x3 trials, mod/maxAx2 each trial. one trial patient stood for 30 seconds, second trial for 1min, 11 seconds before sitting herself on the bed. pt required max v/c to initiate movement and did not answer yes or no questions.Sit to supine maxAx2. Ended treatment pt supine in bed, call light and belongings in reach, bad alarm on.1:1 treatment with GLASS ARTIST 16min. ELVIE GALLARDO GLASS ARTIST
--- NOTE | 2019-02-04 14:22 | NUR ---
DR HORVATH AND DR HOPE'S OFFICES NOTIFIED OF NEW CONSULTS.
[2019-02-04 16:00] VITALS: BP 137/57
--- NOTE | 2019-02-04 16:32 | NUR ---
DR HOPE IN TO SEE PT AT THIS TIME.
[2019-02-04 20:00] VITALS: BP 145/69
--- NOTE | 2019-02-04 23:03 | NUR ---
PATIENT RESPONDS SLOWLY TO QUESTIONS AND REQUESTS. FOLLOWS DIRECTIONS AND VERBALLY RESPONDS WITH YES/NO AND THANK YOU. PATIENT'S AFFECT IS FLAT. PATIENT IS RESTING COMFORTABLY IN HER BED. TOOK ALL NIGHT MEDICATIONS WITHOUT ISSUE. NO S/S OF DISTRESS. CALL LIGHT WITHIN REACH.
[2019-02-05] VITALS: BP 140/56
[2019-02-05 06:01] LABS: BASO % 0.6 % (0.0-1.0); EOS # 0.3 10*3/uL (0.0-0.4); HEMATOCRIT 32.7 % (37.0-47.0); HEMOGLOBIN 10.8 g/dl (12.0-16.0); LYMPH # 2.3 10*3/uL (1.3-4.4); LYMPH % 33.9 % (27.0-41.0); MEAN CELL VOLUME 90.6 fl (81.0-99.0); MEAN CORPUSCULAR HGB 29.9 pg (27.0-31.0); MEAN PLATELET VOLUME 13.6 fl (9.6-12.3); MONO # 0.6 10*3/uL (0.1-1.0); MONO % 8.3 % (3.0-9.0); NEUT # 3.5 10*3/uL (2.3-7.9); NEUT % 52.6 % (47.0-73.0); PLATELET COUNT AUTOMATED 133 10*3/uL (130-400); RED BLOOD COUNT 3.61 10*6/uL (4.10-5.10); RED CELL DISTRI WIDTH 14.1 % (0-14.5); WHITE BLOOD COUNT 6.7 10*3/uL (4.8-10.8)
[2019-02-05 06:23] LABS: CREATININE 1.4 mg/dL (0.55-1.02); POTASSIUM 3.5 mmol/L (3.5-5.1)
[2019-02-05 08:00] VITALS: BP 134/66
--- NOTE | 2019-02-05 08:00 | NUR ---
PT SEEN AT THIS TIME. PT HAS A VERY FLAT AFFECT AND IS SLOW TO RESPOND TO QUESTIONS. PT HAS NO COMPLAINTS AT THIS TIME. THERE ARE NO SIGNS OR SYMPTOMS OF DISTRESS OR SHORTNESS OF BREATH. PT HAS FAMILY IN THE ROOM. BED IN LOWEST LOCKED POSITION AND CALL LIGHT WITHIN REACH. WILL CONTINUE TO MONITOR.
--- NOTE | 2019-02-05 09:00 | NUR ---
case management visits with patient, roommate was present, discussed with patient a plan if insurance company denies SNF stay. roommate was answering most of the questions, patient will be going home and wants home health, roommate stated that when patient went home previously, home health was set up but never came to see patient. dicussed with them choice of home health commpanies, they chose [facility]. directed questions to patient if this was a plan she was comfortable with. she nodded her head, case management will follow and will notify [facility] if insurance denies SNF
--- NOTE | 2019-02-05 11:31 | NUR ---
Continuing to wait for authorization for patient to go to rehab suites.
--- NOTE | 2019-02-05 11:47 | NUR ---
Faxed additional clinicals and therapy notes to [facility] for review. Still waiting for auth.
[2019-02-05 12:00] VITALS: BP 137/62
--- NOTE | 2019-02-05 13:41 | NUR ---
PT IS LETHARGIC. PT AWAKENS BY VERBAL COMMANDS BUT HAS SLEPT ALL DAY. AFFECT IS VERY FLAT. PT IS SLOW TO RESPOND TO COMMUNICATION, AND DOES NOT RESPOND AT ALL AT TIMES. PT HAS NO COMPLAINTS AT THIS TIME. BED IN LOWEST LOCKED POSITION. CALL LIGHT WITHIN REACH. WILL CONTINUE TO MONITOR.
--- NOTE | 2019-02-05 13:45 | NUR ---
OT NOTE Pt was seen this P.M. 1:1 for 15 minute OT session. Upon arrival pt was supine in bed. Pt identified by name and and had no complaints at this time. Pt was much more alert, less lethargic, and social this session versus previous session. Pt transferred supine to sit EOB with SBA. While sitting upright on the EOB pt donned B socks with SBA after set-up. Sit to stand completed from bed level with CGA for safety. Functional mobility completed into the bathroom with CGA and occasional Smui due to increased speed resulting in unsteady gait. Pt transferred on to standard commode with Sumi and off with Sumi due to low surface. Clothing management completed with CGA. Pt then returned to the EOB for a seated rest break due to quick onset of fatigue. Challenged pt's static standing tolerance needed for increased I in self care tasks and functional transfers, pt was able to tolerate aprox 2 minutes at a time before sitting due to fatigue. Pt was left sitting upright on the EOB with call light in reach, tray table in place, and pt's significant other at bedside. Continue with rec D/C plan to SNF. INES Fairchild/Quique
--- NOTE | 2019-02-05 14:01 | NUR ---
PHYSICAL THERAPY informed consent given, pt identified by name and . pt presented supine in bed, room mate at bedside. pt answered questions fluently and was more alert during this treatment. Supine to sit SBA with v/c to initiate movement. STS and stand to sit multiple times CGA. Static standing balance 2min no hand support SBA no LOB presented. Walked 12ft x2, 40ft x1 with a 180* turn CGA, seated rests in between, no LOB presented. During gait pt presented excessive weight shift, but did not require assistance to stay standing. Ended treatment pt sitting EOB with room mate present, call light and belongings in reach. 1:1 treatment with SUPERVISOR 17min. ELVIE GALLARDO SUPERVISOR
[2019-02-05 16:00] VITALS: BP 140/65
[2019-02-05 20:00] VITALS: BP 149/63
[2019-02-06] VITALS: BP 144/58
[2019-02-06 06:29] LABS: CREATININE 1.25 mg/dL (0.55-1.02); POTASSIUM 3.4 mmol/L (3.5-5.1)
[2019-02-06 08:00] VITALS: BP 146/66
[2019-02-06 12:00] VITALS: BP 143/50
--- NOTE | 2019-02-06 13:35 | NUR ---
PHYSICAL THERAPY Patient seen this PM for her therapy session, sitting in bedside chair at time of arrival. Patient requiring increased time for communication and/or participation in therapy session. SLOT ROUTER attempted to communicate, asking pt to perform ther-ex or stand this date, pt did not verbally respond just started to stand-- pt performed STS transfer from chair->FWW with Sumi-modA x1 on 3 attempts with static stand lasting ~2 minutes with each trial. SLOT ROUTER providing cues for technique, hand placement and eccentric control prior to sitting in chair (pt tends to "flop" back into chair)- pt did not want to perform ther-ex this date and responded "Im getting shower later, dont want to be tired". SLOT ROUTER educated pt on need to perform ROM on B LE in order to improve mobility- pt shook her head. Pt sitting in bedside chair at session end with call light and tray table within room. Lisa Jeffers SLOT ROUTER
--- NOTE | 2019-02-06 14:14 | NUR ---
PATIENT REQUESTING TO TAKE SHOWER, DR PORTILLO CALLED- PATIENT TO GET BED BATH AT THIS TIME DUE TO RISK OF FALLING AND IJ.
--- NOTE | 2019-02-06 15:45 | NUR ---
PATIENT ASSISTED TO THE BATHROOM AND SET UP FOR BATHROOM TO GET CLEANED UP.
[2019-02-06 16:00] VITALS: BP 134/66
[2019-02-06 20:00] VITALS: BP 152/73
[2019-02-07] VITALS: BP 1155/89
--- NOTE | 2019-02-07 02:57 | NUR ---
24 HR chart check completed.
[2019-02-07 08:00] VITALS: BP 158/90
[2019-02-07 12:00] VITALS: BP 142/60
[2019-02-07 16:00] VITALS: BP 152/90
--- NOTE | 2019-02-07 19:43 | NUR ---
PATIENT AWAKE, ALERT AND SITTING UP IN BED. PATIENT STATES SHE DOES NOT HAVE AN APPETITE WHEN ASKED ABOUT HER LACK IN NUTRITIONAL INTAKE. PATIENT EDUCATED AND ENCOURAGED TO INTAKE MORE FOOD AND EDUCATED ABOUT THE IMPORTANCE OF THE ENSURE NUTRITIONAL SHAKES IN THE MEAN TIME WHILE SHE STRUGGLES WITH HER APPETITE. PATIENT VERBALIZES UNDERSTANDING. DENIES ANY OTHER COMPLAINTS AT THIS TIME. NO S/S OF DISTRESS. CALL LIGHT WITHIN REACH.
[2019-02-07 20:00] VITALS: BP 135/69
[2019-02-08] VITALS: BP 165/68
[2019-02-08 06:11] LABS: BASO % 0.2 % (0.0-1.0); EOS # 0.2 10*3/uL (0.0-0.4); EOS % 3.3 % (1.0-4.0); HEMATOCRIT 32.1 % (37.0-47.0); HEMOGLOBIN 10.7 g/dl (12.0-16.0); LYMPH # 2.4 10*3/uL (1.3-4.4); LYMPH % 37.5 % (27.0-41.0); MEAN CELL VOLUME 88.4 fl (81.0-99.0); MEAN CORPUSCULAR HGB 29.5 pg (27.0-31.0); MEAN CORPUSCULAR HGB CONC 33.3 g/dl (33.0-37.0); MEAN PLATELET VOLUME 14.1 fl (9.6-12.3); MONO # 0.5 10*3/uL (0.1-1.0); MONO % 8.3 % (3.0-9.0); NEUT # 3.2 10*3/uL (2.3-7.9); NEUT % 50.2 % (47.0-73.0); PLATELET COUNT AUTOMATED 138 10*3/uL (130-400); RED BLOOD COUNT 3.63 10*6/uL (4.10-5.10); RED CELL DISTRI WIDTH 14.4 % (0-14.5); WHITE BLOOD COUNT 6.4 10*3/uL (4.8-10.8)
--- NOTE | 2019-02-08 06:14 | NUR ---
KEANUJM [id number] Please refer to the physician's history and physical for past medical history, comorbid conditions, and allergies. Diagnosis: ACUTE RENAL FAILURE Michael Score: 18,AT RISK WOUND DESCRIPTIONS: (re visit) Location of the wound: right knee Type of wound: surgical Thickness: Full Size: 17.5cm x 0.2cm x <0.1cm Tunneling: none Undermining: none Sinus Tract: none Presence of Exudate: none Amount: None Color: Alston Odor: None Periwound Skin Appearance: Normal Wound edges: approximated Pain (associated with wound): none at time of assessment Surface the patient is resting on: Isoflex SKIN PREVENTION RECOMMENDATION: 1. Pressure redistribution support surface as appropriate 2. Elevate heels 3. Remove boots/TEDS every shift and reapply 4. Head of bed 30 degrees as tolerated 5. Assess nutrition and hydration 6. Manage moisture 7. Avoid the use of containment devices while in bed 8. Use absorptive products on surfaces limit layers of linens on bed 9. Turn and reposition every 1-2 hours in bed and every 1 hour in chair as tolerated 10. Weight shifts every 15 minutes while up in chair 11. Offloading with pillows or device to keep heels elevated off bed 12. Monitor skin at least every shift 13. Inspect under medical devices twice a day WOUND TREATMENT RECOMMENDATIONS: Patient will follow up with podiatry upon discharge.
--- NOTE | 2019-02-08 06:16 | NUR ---
KEANUJM [id number] Please refer to the physician's history and physical for past medical history, comorbid conditions, and allergies. Diagnosis: ACUTE RENAL FAILURE Michael Score: 18,AT RISK WOUND DESCRIPTIONS: WOUND DESCRIPTIONS: (re visit) Location of the wound: right knee Type of wound: surgical Thickness: Full Size: 17.5cm x 0.2cm x <0.1cm Tunneling: none Undermining: none Sinus Tract: none Presence of Exudate: none Amount: None Color: Alston Odor: None Periwound Skin Appearance: Normal Wound edges: approximated Pain (associated with wound): none at time of assessment Surface the patient is resting on: Isoflex SKIN PREVENTION RECOMMENDATION: 1. Pressure redistribution support surface as appropriate 2. Elevate heels 3. Remove boots/TEDS every shift and reapply 4. Head of bed 30 degrees as tolerated 5. Assess nutrition and hydration 6. Manage moisture 7. Avoid the use of containment devices while in bed 8. Use absorptive products on surfaces limit layers of linens on bed 9. Turn and reposition every 1-2 hours in bed and every 1 hour in chair as tolerated 10. Weight shifts every 15 minutes while up in chair 11. Offloading with pillows or device to keep heels elevated off bed 12. Monitor skin at least every shift 13. Inspect under medical devices twice a day WOUND TREATMENT RECOMMENDATIONS: Patient will follow up with ortho upon discharge.
[2019-02-08 06:24] LABS: BUN 7 mg/dl (7-24); CHLORIDE 108 mmol/L (98-107); CREATININE 1.17 mg/dL (0.55-1.02); POTASSIUM 3.3 mmol/L (3.5-5.1); SODIUM 140 mmol/L (136-145)
[2019-02-08 08:00] VITALS: BP 158/86
--- NOTE | 2019-02-08 08:30 | NUR ---
PHYSICAL THERAPY informed consent given, pt identified by name and . pt presented supine in bed. supine to sit SBA. STS and stand to sit x2 trials CGA.Static standing balance 1min CGA, no LOB presented. Walked 60ft CGA, pt presented excessive weight shift throughout gait, but did not require Assistance to stay balanced. Ended treatment pt sitting EOB, belongings in reach, with friend at bedside. 1:1 treatment with MEDICAL ADMINISTRATIVE TECHNICIAN 13min. ELVIE GALLARDO MEDICAL ADMINISTRATIVE TECHNICIAN
--- NOTE | 2019-02-08 08:30 | NUR ---
OT NOTE Pt was seen this A.M. 1:1 for 15 minute OT session. Upon arrival pt was supine in bed. Pt identified by name and and had no complaints at this time. Pt was much more alert and social this session versus prior sessions. Pt transferred supine to sit EOB with SBA. While sitting EOB pt donned B socks with CGA for safety due to occasional LOB backwards that required Sumi to correct. Multiple sit to stand transfers completed from bed level [facility] CGA for safety. Challenged pt's static standing tolerance needed for increased I in self care tasks and functional transfers and pt was able to tolerate aprox 3 minutes at a time before sitting due to fatigue. Functional mobility completed into the bathroom with CGA for safety, pt had one LOB that occured while crossing midline to turn on the lights that required Sumi to correct. Pt transferred on/off standard commode with CGA and use of grab bar for UE support. Pt then returned to the EOB where she was left sitting upright with friend at bedside, call light in reach, and tray table in place. Continue with rec D/C plan to SNF. INES Fairchild/Quique
--- NOTE | 2019-02-08 08:35 | NUR ---
PT UP IN [facility] WITH PHYSICAL THERAPY.
--- NOTE | 2019-02-08 08:41 | NUR ---
Received auth for patient to go to [facility]. Patient ok to go if medically stable for discharge.
[2019-02-08] MEDS ORDERED: LITHIUM CARB300 MG PO (10:03)
--- NOTE | 2019-02-08 11:01 | NUR ---
Patient is discharged to [facility]hab [facility], will transport via private car with friend. RS notified, DC information faxed.
--- NOTE | 2019-02-08 11:18 | NUR ---
NURSE TO NURSE REPORT GIVEN TO [facility]OS AT [facility].
--- NOTE | 2019-02-08 12:00 | NUR ---
MULTILUMEN CATHETER IN RIGHT IJ REMOVED, TIP INTACT, PRESSURE DRESSING APPLIED. DISCHARGE PHOTOS TAKEN AT THIS TIME.
--- NOTE | 2019-02-08 12:35 | NUR ---
Discharge instructions reviewed with patient/family. Patient receptive and verbalizes understanding. Follow-up care arranged. Written instructions given to patient/family. JOSE WU
--- NOTE | 2019-02-08 14:53 | NUR ---
PHYSICAL THERAPY CO-SIGN I approve of the Phyical Therapy notes written above. KEVIN FINE PT
--- NOTE | 2019-02-10 15:49 | NUR ---
OCCUPATIONAL THERAPY CO-SIGN I approve of the Occupational Therapy notes written above. JANICE SCOTT OTR/Quique
== END 2019-02-08 12:35 | disposition other institution (70) | DRG 682 ==
LOC: ED 19:36 → 4E 23:14 → EDHOLD 23:14 → 4E 23:38
PROVIDERS: Family Medicine; Internal Medicine; Physician Assistant; Student in an Organized Health Care Education/Training Program; ADMIT Internal Medicine
DX: N17.0 Acute kidney failure with tubular necrosis (principal); G93.41 Metabolic encephalopathy; E87.2 Acidosis; F31.81 Bipolar II disorder; Z68.41 Body mass index [BMI] 40.0-44.9, adult; Z71.6 Tobacco abuse counseling; I95.89 Other hypotension; E87.5 Hyperkalemia; E87.8 Other disorders of electrolyte and fluid balance, not elsewhere classified; M35.00 Sjogren syndrome, unspecified; E55.9 Vitamin D deficiency, unspecified; E78.5 Hyperlipidemia, unspecified; E66.01 Morbid (severe) obesity due to excess calories; T43.595A Adverse effect of other antipsychotics and neuroleptics, initial encounter; K21.9 Gastro-esophageal reflux disease without esophagitis; F63.81 Intermittent explosive disorder; N18.3 Chronic kidney disease, stage 3 (moderate); F17.210 Nicotine dependence, cigarettes, uncomplicated; I12.9 Hypertensive chronic kidney disease with stage 1 through stage 4 chronic kidney disease, or unspecified chronic kidney disease; D64.9 Anemia, unspecified; Z96.651 Presence of right artificial knee joint; Y92.89 Other specified places as the place of occurrence of the external cause; Z87.11 Personal history of peptic ulcer disease; Z82.49 Family history of ischemic heart disease and other diseases of the circulatory system; Z83.3 Family history of diabetes mellitus; Z84.1 Family history of disorders of kidney and ureter; Z88.6 Allergy status to analgesic agent; Z88.1 Allergy status to other antibiotic agents; Z79.899 Other long term (current) drug therapy; Z91.81 History of falling; Z79.82 Long term (current) use of aspirin

== ENCOUNTER → 2019-10-29 | Outpatient (CLI) | payer OTHER ==
[~2019-10-29] MED LIST changes: +ALDACTONE25 M1 PO; +CLARITIN10 MG PO; +CLONIDINE HCL0.1 MG PO; +COLACE 2-IN-11 EACH PO; +LASIX20 MG PO; +LISINOPRIL40 MG PO; +LITHIUM CARB300 MG PO; +LITHIUM CARBON300 M2 PO; +MOBIC15 MG PO; +OXYCODONE HYDROC5 MG PO; +Ondansetron4 MG PO; +POTASSIUM CITRA5 MEQ PO; +TYLENOL325 M3 PO; +XANAX1 MG PO
--- NOTE | 2019-10-29 11:52 | NUR ---
INFORMED SIGNED CONSENT OBTAINED FOR STANDARD ONLY GXT. HR 73 NSR BP 140/84 IN SUPINE POSITION, STANDING HR 78 BP 130/82. PT COMPLETED 2:13 OF A LUDWIN PROTOCOL WITH PT COMPLETING 2:13 OF STAGE I AT 1.7 MPH AND A 10% GRADE. PT VERY SOB AND FATIGUED. PT REACHED A PEAK HR OF 124 WHICH REPRESENTS 72% OF PREDICTED MAXIMUM AND A PEAK BP OF 188/90. TEST TERMINATED DUE TO PTS SOB AND FATIGUE. LAST RECOVERY HR OF 82 BP 170/88. PT IN STABLE CONDITION, HOME TO SELF.
== END | disposition home or self-care (01) ==
LOC: CARD 00:31
DX: R07.9 Chest pain, unspecified (principal); I10 Essential (primary) hypertension

== ENCOUNTER → 2020-08-23 | Outpatient (CLI) | payer OTHER ==
[2020-08-23 10:13] LABS: ALBUMIN 3.3 gm/dl (3.1-4.5); BASO % 0.5 % (0.0-1.0); CREATININE 1.26 mg/dL (0.55-1.02); EOS # 0.1 10*3/uL (0.0-0.4); EOS % 2.3 % (1.0-4.0); LYMPH # 1.2 10*3/uL (1.3-4.4); LYMPH % 26.9 % (27.0-41.0); MEAN CELL VOLUME 92.6 fl (81.0-99.0); MEAN CORPUSCULAR HGB 30.4 pg (27.0-31.0); MEAN CORPUSCULAR HGB CONC 32.8 g/dl (33.0-37.0); MEAN PLATELET VOLUME 12.7 fl (9.6-12.3); MONO # 0.3 10*3/uL (0.1-1.0); MONO % 7.2 % (3.0-9.0); NEUT # 2.8 10*3/uL (2.3-7.9); NEUT % 62.6 % (47.0-73.0); PLATELET COUNT AUTOMATED 148 10*3/uL (130-400); RED BLOOD COUNT 4.21 10*6/uL (4.10-5.10); RED CELL DISTRI WIDTH 13.7 % (0-14.5); TOTAL PROTEIN 6.8 gm/dL (6.4-8.2); WHITE BLOOD COUNT 4.4 10*3/uL (4.8-10.8)
[2020-08-23 10:20] LABS: FREE T4 0.85 ng/dl (0.76-1.46); THYROID STIM HORMONE (HS) 1.36 uIU/ml (0.358-4.75)
== END | disposition home or self-care (01) ==
LOC: LAB 08:44
PROVIDERS: Family Medicine; ATTEND Family Medicine
DX: I10 Essential (primary) hypertension (principal); N93.9 Abnormal uterine and vaginal bleeding, unspecified; R53.83 Other fatigue; E66.01 Morbid (severe) obesity due to excess calories; E78.00 Pure hypercholesterolemia, unspecified; E78.5 Hyperlipidemia, unspecified; Z79.899 Other long term (current) drug therapy

== ENCOUNTER → 2020-09-07 | Outpatient (CLI) | payer OTHER | END | disposition home or self-care (01) | LOC: US 11:30 | PROVIDERS: ATTEND Obstetrics & Gynecology | DX: D25.2 Subserosal leiomyoma of uterus (principal); E66.01 Morbid (severe) obesity due to excess calories ==

== ENCOUNTER → 2021-05-04 | Outpatient (CLI) | payer OTHER | END | disposition home or self-care (01) | LOC: LAB 09:18 | PROVIDERS: ATTEND Nurse Practitioner Family | DX: K21.9 Gastro-esophageal reflux disease without esophagitis (principal) ==

== ENCOUNTER → 2021-06-13 | Outpatient (CLI) | payer OTHER ==
[~2021-06-13] MED LIST changes: +DECADRON6 M1 PO; +ZITHROMAX250 MG PO
== END | disposition home or self-care (01) ==
LOC: CARD 06-08 09:30
PROVIDERS: ATTEND Internal Medicine Cardiovascular Disease
DX: Z01.810 Encounter for preprocedural cardiovascular examination (principal); I10 Essential (primary) hypertension; G47.33 Obstructive sleep apnea (adult) (pediatric); R53.81 Other malaise

== ENCOUNTER → 2021-06-15 | Outpatient (CLI) | payer OTHER | END | disposition home or self-care (01) | LOC: US 11:00 | PROVIDERS: ATTEND Nurse Practitioner Family | DX: K76.0 Fatty (change of) liver, not elsewhere classified (principal); R10.13 Epigastric pain ==

== ENCOUNTER 2021-06-27 10:25 | Emergency (ER) | payer OTHER ==
[~2021-06-27] VITALS: Wt 152.9 kg
[~2021-06-27 10:25] MED LIST changes: -DECADRON6 M1 PO; -ZITHROMAX250 MG PO
[2021-06-27 10:51] LABS: BASO % 0.3 % (0.0-1.0); EOS # 0.1 10*3/uL (0.0-0.4); EOS % 1.3 % (1.0-4.0); HEMATOCRIT 43.3 % (37.0-47.0); LYMPH % 15.3 % (27.0-41.0); MEAN CELL VOLUME 89.1 fl (81.0-99.0); MEAN CORPUSCULAR HGB 30.2 pg (27.0-31.0); MEAN CORPUSCULAR HGB CONC 33.9 g/dl (33.0-37.0); MEAN PLATELET VOLUME 11.8 fl (9.6-12.3); MONO # 0.6 10*3/uL (0.1-1.0); MONO % 9.6 % (3.0-9.0); NEUT # 4.6 10*3/uL (2.3-7.9); NEUT % 73.2 % (47.0-73.0); PLATELET COUNT AUTOMATED 272 10*3/uL (130-400); RED BLOOD COUNT 4.86 10*6/uL (4.10-5.10); WHITE BLOOD COUNT 6.3 10*3/uL (4.8-10.8)
[2021-06-27 11:06] LABS: ALBUMIN 3.6 gm/dl (3.1-4.5); ALKALINE PHOSPHATASE 112 U/L (45-117); BUN 8 mg/dl (7-24); CHLORIDE 109 mmol/L (98-107); CREATININE 1.41 mg/dL (0.55-1.02); LIPASE 31 U/L (73-393); SGOT/AST 15 IU/L (3-35); SGPT/ALT 24 U/L (12-78); SODIUM 138 mmol/L (136-145); TOTAL PROTEIN 7.7 gm/dL (6.4-8.2)
[2021-06-27 11:08] LABS: TROPONIN I < 0.015 ng/ml (<0.045)
[2021-06-27] MEDS ORDERED: ZITHROMAX250 MG PO (14:13)
[2021-06-27] MEDS ORDERED: DECADRON6 M1 PO (14:13)
== END 2021-06-27 14:40 | disposition home or self-care (01) ==
LOC: ED 10:25
PROVIDERS: Emergency Medicine
DX: J18.9 Pneumonia, unspecified organism (principal); Z20.822 Contact with and (suspected) exposure to COVID-19; Z88.1 Allergy status to other antibiotic agents; Z88.8 Allergy status to other drugs, medicaments and biological substances; Z88.6 Allergy status to analgesic agent; Z79.899 Other long term (current) drug therapy; Z79.82 Long term (current) use of aspirin

== ENCOUNTER 2021-06-29 17:13 | Emergency (ER) | payer OTHER ==
[~2021-06-29] VITALS: Ht 182.8 cm; Wt 152.9 kg
[~2021-06-29 17:13] MED LIST changes: +DECADRON6 M1 PO; +ZITHROMAX250 MG PO
[2021-06-29 17:46] LABS: BASO % 0.2 % (0.0-1.0); EOS # 0.1 10*3/uL (0.0-0.4); EOS % 0.9 % (1.0-4.0); HEMATOCRIT 42.3 % (37.0-47.0); LYMPH # 2.5 10*3/uL (1.3-4.4); LYMPH % 30.7 % (27.0-41.0); MEAN CORPUSCULAR HGB CONC 33.3 g/dl (33.0-37.0); MEAN PLATELET VOLUME 11.4 fl (9.6-12.3); MONO # 0.8 10*3/uL (0.1-1.0); MONO % 9.9 % (3.0-9.0); NEUT # 4.7 10*3/uL (2.3-7.9); NEUT % 58.1 % (47.0-73.0); PLATELET COUNT AUTOMATED 296 10*3/uL (130-400); RED CELL DISTRI WIDTH 13.1 % (0-14.5)
[2021-06-29 18:02] LABS: ALBUMIN 3.4 gm/dl (3.1-4.5); ALKALINE PHOSPHATASE 94 U/L (45-117); BUN 10 mg/dl (7-24); CHLORIDE 109 mmol/L (98-107); CREATININE 1.34 mg/dL (0.55-1.02); POTASSIUM 3.8 mmol/L (3.5-5.1); SGOT/AST 12 IU/L (3-35); SGPT/ALT 23 U/L (12-78); SODIUM 139 mmol/L (136-145); TOTAL PROTEIN 7.3 gm/dL (6.4-8.2)
[2021-06-29 18:07] LABS: TROPONIN I < 0.015 ng/ml (<0.045)
== END 2021-06-30 00:41 | disposition home or self-care (01) ==
LOC: ED 17:13
PROVIDERS: Emergency Medicine
DX: J18.9 Pneumonia, unspecified organism (principal); F17.200 Nicotine dependence, unspecified, uncomplicated; Z79.82 Long term (current) use of aspirin; Z88.8 Allergy status to other drugs, medicaments and biological substances; Z88.1 Allergy status to other antibiotic agents; Z88.5 Allergy status to narcotic agent; Z79.2 Long term (current) use of antibiotics; Z79.899 Other long term (current) drug therapy; Z98.890 Other specified postprocedural states; Z96.653 Presence of artificial knee joint, bilateral

== ENCOUNTER → 2021-07-19 | Outpatient (CLI) | payer OTHER | END | disposition home or self-care (01) | LOC: LAB 12:15 | PROVIDERS: ATTEND Nurse Practitioner Family | DX: F31.75 Bipolar disorder, in partial remission, most recent episode depressed (principal) ==

== ENCOUNTER → 2021-08-17 | Outpatient (CLI) | payer OTHER | LOC: WOUNDCARE 00:26 | PROVIDERS: ATTEND Nurse Practitioner Family | DX: T21.01XA Burn of unspecified degree of chest wall, initial encounter (principal); T31.0 Burns involving less than 10% of body surface; I12.9 Hypertensive chronic kidney disease with stage 1 through stage 4 chronic kidney disease, or unspecified chronic kidney disease; N18.9 Chronic kidney disease, unspecified; E78.5 Hyperlipidemia, unspecified; K21.9 Gastro-esophageal reflux disease without esophagitis; J45.909 Unspecified asthma, uncomplicated; G89.4 Chronic pain syndrome; G43.909 Migraine, unspecified, not intractable, without status migrainosus; M35.00 Sjogren syndrome, unspecified; M17.0 Bilateral primary osteoarthritis of knee; F32.9 Major depressive disorder, single episode, unspecified; F17.200 Nicotine dependence, unspecified, uncomplicated; Z79.899 Other long term (current) drug therapy; Z98.42 Cataract extraction status, left eye; Z98.41 Cataract extraction status, right eye; Z96.653 Presence of artificial knee joint, bilateral; X08.8XXA Exposure to other specified smoke, fire and flames, initial encounter; Y93.89 Activity, other specified; Y92.89 Other specified places as the place of occurrence of the external cause; Y99.8 Other external cause status ==

== ENCOUNTER → 2021-08-23 | Outpatient (CLI) | payer OTHER | LOC: WOUNDCARE 00:29 | PROVIDERS: ATTEND Nurse Practitioner Family | DX: T21.01XD Burn of unspecified degree of chest wall, subsequent encounter (principal); I12.9 Hypertensive chronic kidney disease with stage 1 through stage 4 chronic kidney disease, or unspecified chronic kidney disease; K21.9 Gastro-esophageal reflux disease without esophagitis; E78.5 Hyperlipidemia, unspecified; J45.909 Unspecified asthma, uncomplicated; G89.4 Chronic pain syndrome; M35.00 Sjogren syndrome, unspecified; M17.0 Bilateral primary osteoarthritis of knee; F31.9 Bipolar disorder, unspecified; F17.200 Nicotine dependence, unspecified, uncomplicated; Z79.899 Other long term (current) drug therapy; Z98.42 Cataract extraction status, left eye; Z98.41 Cataract extraction status, right eye; Z96.653 Presence of artificial knee joint, bilateral; X08.8XXD Exposure to other specified smoke, fire and flames, subsequent encounter ==

== ENCOUNTER → 2021-09-05 | Outpatient (CLI) | payer OTHER | LOC: WOUNDCARE 01:06 | PROVIDERS: ATTEND Nurse Practitioner Family | DX: T21.31XD Burn of third degree of chest wall, subsequent encounter (principal); I12.9 Hypertensive chronic kidney disease with stage 1 through stage 4 chronic kidney disease, or unspecified chronic kidney disease; N18.9 Chronic kidney disease, unspecified; K21.9 Gastro-esophageal reflux disease without esophagitis; E78.5 Hyperlipidemia, unspecified; J45.909 Unspecified asthma, uncomplicated; G89.4 Chronic pain syndrome; G43.909 Migraine, unspecified, not intractable, without status migrainosus; M35.00 Sjogren syndrome, unspecified; M17.0 Bilateral primary osteoarthritis of knee; F31.9 Bipolar disorder, unspecified; F17.200 Nicotine dependence, unspecified, uncomplicated; Z79.899 Other long term (current) drug therapy; Z98.42 Cataract extraction status, left eye; Z98.41 Cataract extraction status, right eye; Z96.653 Presence of artificial knee joint, bilateral; X08.8XXD Exposure to other specified smoke, fire and flames, subsequent encounter ==

== ENCOUNTER → 2021-09-19 | Outpatient (CLI) | payer OTHER | END | disposition home or self-care (01) | LOC: LAB 09:01 | PROVIDERS: ATTEND Nurse Practitioner Family | DX: F31.30 Bipolar disorder, current episode depressed, mild or moderate severity, unspecified (principal) ==

== ENCOUNTER 2021-11-26 09:42 | Inpatient (IN) | payer OTHER ==
[~2021-11-26] VITALS: Ht 182.8 cm; Wt 143.1 kg
[~2021-11-26 09:42] MED LIST changes: +BENZTROPINE MESY1 MG PO; +BUPROPION HYDR150 M3 PO; +BUSPIRONE10 MG PO; +FAMOTIDINE40 MG PO; +HYDROCODON-ACE1 EAC1 PO; +PANTOPRAZOLE SO40 MG PO; +TRAZODONE50 MG PO; +VICTOZA 2-0.6 MG/0.1 SC; +VIMPAT150 MG PO; -VITAMIN D-32000 UNI1 PO; +VITAMIN D250 MC1 PO; +ZANAFLEX4 M2 PO
[2021-11-26 09:48] VITALS: BP 135/62
[2021-11-26 10:06] LABS: BASO % 0.4 % (0.0-1.0); EOS # 0.2 10*3/uL (0.0-0.4); EOS % 3.2 % (1.0-4.0); HEMATOCRIT 43.4 % (37.0-47.0); LYMPH # 1.4 10*3/uL (1.3-4.4); MEAN CELL VOLUME 90.6 fl (81.0-99.0); MEAN CORPUSCULAR HGB 29.2 pg (27.0-31.0); MEAN CORPUSCULAR HGB CONC 32.3 g/dl (33.0-37.0); MEAN PLATELET VOLUME 12.4 fl (9.6-12.3); MONO # 0.4 10*3/uL (0.1-1.0); MONO % 8.2 % (3.0-9.0); NEUT # 3.1 10*3/uL (2.3-7.9); PLATELET COUNT AUTOMATED 167 10*3/uL (130-400); RED BLOOD COUNT 4.79 10*6/uL (4.10-5.10); RED CELL DISTRI WIDTH 13.2 % (0-14.5)
[2021-11-26 10:21] LABS: ALBUMIN 3.3 gm/dl (3.1-4.5); CREATININE 1.61 mg/dL (0.55-1.02); TOTAL PROTEIN 6.9 gm/dL (6.4-8.2)
[2021-11-26 11:00] LABS: BILIRUBIN Negative (Negative); BLOOD Negative (Negative); CLARITY Clear (Clear); COLOR Yellow (Yellow); GLUCOSE Negative (Negative); KETONE Trace (Negative); LEUKO ESTERASE 2+ (Negative); NITRITE Negative (Negative); PH 6.5 (4.5-8.0)
[2021-11-26 11:11] LABS: BACTERIA 4+; WBC TNTC wbc/hpf (0-5)
[2021-11-26 12:10] VITALS: BP 134/66
[2021-11-26] MEDS ORDERED: Wellbutrin Sr100 MG PO (12:42)
[2021-11-26] MEDS ORDERED: IRON325 M1 PO (12:43)
[2021-11-26] MEDS ORDERED: AYGESTIN5 MG PO (12:44)
[2021-11-26] MEDS ORDERED: BENZTROPINE MESY1 MG PO (12:44)
[2021-11-26 14:15] VITALS: BP 134/60
[2021-11-26 15:34] LABS: ABG BASE EXCESS -1.7 mmol/L (-2.0-2.0); ARTERIAL BLOOD GAS PH 7.403 (7.35-7.45); ARTERIAL BLOOD GAS PO2 84.8 (80-90)
[2021-11-26 16:29] LABS: URINE AMPHETAMINES < 1000 (1000ng/ml); URINE BARBITURATES < 200 (200ng/ml); URINE BENZODIAZEPINES < 200 (200ng/ml); URINE CANNABINOIDS (THC) < 50 (50ng/ml); URINE COCAINE < 300 (300ng/ml); URINE METHADONE < 300 (300ng/ml); URINE OPIATES < 300 (300ng/ml)
[2021-11-26 16:33] LABS: URINE PHENCYCLIDINE < 25 (25ng/ml)
[2021-11-26 16:35] VITALS: BP 138/64
[2021-11-26 17:30] VITALS: BP 120/60
[2021-11-26 20:00] VITALS: BP 116/51
[2021-11-27] VITALS: BP 126/70
[2021-11-27 06:45] LABS: ALBUMIN 2.5 gm/dl (3.1-4.5); CREATININE 1.33 mg/dL (0.55-1.02); POTASSIUM 3.8 mmol/L (3.5-5.1); TOTAL PROTEIN 5.8 gm/dL (6.4-8.2)
[2021-11-27 07:57] VITALS: BP 140/72
[2021-11-27 09:11] LABS: BASO % 0.4 % (0.0-1.0); EOS # 0.1 10*3/uL (0.0-0.4); EOS % 2.6 % (1.0-4.0); HEMATOCRIT 41.4 % (37.0-47.0); LYMPH # 1.5 10*3/uL (1.3-4.4); LYMPH % 33.3 % (27.0-41.0); MEAN CELL VOLUME 90.6 fl (81.0-99.0); MEAN CORPUSCULAR HGB 29.5 pg (27.0-31.0); MEAN CORPUSCULAR HGB CONC 32.6 g/dl (33.0-37.0); MEAN PLATELET VOLUME 12.1 fl (9.6-12.3); MONO # 0.4 10*3/uL (0.1-1.0); MONO % 9.6 % (3.0-9.0); NEUT # 2.5 10*3/uL (2.3-7.9); NEUT % 53.9 % (47.0-73.0); PLATELET COUNT AUTOMATED 142 10*3/uL (130-400); RED BLOOD COUNT 4.57 10*6/uL (4.10-5.10); RED CELL DISTRI WIDTH 13.1 % (0-14.5); WHITE BLOOD COUNT 4.6 10*3/uL (4.8-10.8)
[2021-11-27 11:52] VITALS: BP 120/58
[2021-11-27 16:00] VITALS: BP 99/76
[2021-11-27 20:00] VITALS: BP 102/48
[2021-11-28 00:07] VITALS: BP 132/63
[2021-11-28] MEDS ORDERED: BUPROPION HYDR150 M3 PO (05:04)
[2021-11-28] MEDS ORDERED: METOPROLOL TART50 M1 PO (05:05)
[2021-11-28] MEDS ORDERED: FIORICET 50-301 EACH PO (05:06)
[2021-11-28 06:53] LABS: CREATININE 1.4 mg/dL (0.55-1.02); POTASSIUM 3.9 mmol/L (3.5-5.1)
[2021-11-28 08:00] VITALS: BP 138/68
[2021-11-28 12:00] VITALS: BP 118/72
[2021-11-28] MEDS ORDERED: QUETIAPINE FUM100 M3 PO (12:34)
[2021-11-28] MEDS ORDERED: QUETIAPINE FUMA25 MG PO (12:34)
[2021-11-28] MEDS ORDERED: LYRICA75 M1 PO (12:35)
== END 2021-11-28 14:28 | disposition home health service (06) | DRG 463 ==
LOC: ED 09:42 → EDHOLD 12:17 → 5E 12:17 → EDHOLD 13:26 → 5E 16:55
PROVIDERS: Emergency Medicine; Internal Medicine; Student in an Organized Health Care Education/Training Program; ADMIT Family Medicine; ATTEND Family Medicine
DX: N30.00 Acute cystitis without hematuria (principal); N17.0 Acute kidney failure with tubular necrosis; G93.41 Metabolic encephalopathy; F31.81 Bipolar II disorder; M35.00 Sjogren syndrome, unspecified; E44.0 Moderate protein-calorie malnutrition; F17.210 Nicotine dependence, cigarettes, uncomplicated; N18.32 Chronic kidney disease, stage 3b; F63.81 Intermittent explosive disorder; Z20.822 Contact with and (suspected) exposure to COVID-19; R29.6 Repeated falls; E55.9 Vitamin D deficiency, unspecified; I10 Essential (primary) hypertension; E78.2 Mixed hyperlipidemia; E87.8 Other disorders of electrolyte and fluid balance, not elsewhere classified; Z88.1 Allergy status to other antibiotic agents; Z88.5 Allergy status to narcotic agent; Z88.8 Allergy status to other drugs, medicaments and biological substances; Z79.899 Other long term (current) drug therapy; Z82.49 Family history of ischemic heart disease and other diseases of the circulatory system

== ENCOUNTER 2022-12-11 11:00 | Emergency (ER) | payer OTHER ==
[~2022-12-11] VITALS: Ht 182.8 cm; Wt 164.7 kg
[~2022-12-11 11:00] MED LIST changes: +AYGESTIN5 MG PO; +IRON325 M1 PO; +LYRICA75 M1 PO; +METOPROLOL TART50 M1 PO; +QUETIAPINE FUM100 M3 PO; +QUETIAPINE FUMA25 MG PO; +Wellbutrin Sr100 MG PO
[2022-12-11] MEDS ORDERED: PREDNISONE10 MG PO (11:22)
== END 2022-12-11 12:00 | disposition home or self-care (01) ==
LOC: ED 11:00
DX: S29.012A Strain of muscle and tendon of back wall of thorax, initial encounter (principal); I10 Essential (primary) hypertension; F32.A Depression, unspecified; J45.909 Unspecified asthma, uncomplicated; F41.9 Anxiety disorder, unspecified; K21.9 Gastro-esophageal reflux disease without esophagitis; Z88.1 Allergy status to other antibiotic agents; Z88.8 Allergy status to other drugs, medicaments and biological substances; Z98.890 Other specified postprocedural states; Z96.651 Presence of right artificial knee joint; Z96.652 Presence of left artificial knee joint; F17.200 Nicotine dependence, unspecified, uncomplicated; X58.XXXA Exposure to other specified factors, initial encounter; Y93.89 Activity, other specified; Y92.89 Other specified places as the place of occurrence of the external cause; Y99.8 Other external cause status

== ENCOUNTER → 2022-12-18 | Outpatient (CLI) | payer OTHER ==
[~2022-12-18] MED LIST changes: +PREDNISONE10 MG PO
== END | disposition home or self-care (01) ==
LOC: RAD 10:36
PROVIDERS: ATTEND Family Medicine
DX: M54.6 Pain in thoracic spine (principal); G89.29 Other chronic pain

== ENCOUNTER → 2024-03-10 | Outpatient (CLI) | payer OTHER ==
[2024-03-10 11:16] LABS: BASO % 0.4 % (0.0-1.0); EOS # 0.1 10*3/uL (0.0-0.4); EOS % 1.6 % (1.0-4.0); HEMATOCRIT 44.1 % (37.0-47.0); LYMPH # 1.1 10*3/uL (1.3-4.4); LYMPH % 23.5 % (27.0-41.0); MEAN CELL VOLUME 91.7 fl (81.0-99.0); MEAN CORPUSCULAR HGB 31.6 pg (27.0-31.0); MEAN CORPUSCULAR HGB CONC 34.5 g/dl (33.0-37.0); MEAN PLATELET VOLUME 11.3 fl (9.6-12.3); MONO # 0.3 10*3/uL (0.1-1.0); MONO % 6.6 % (3.0-9.0); NEUT # 3.3 10*3/uL (2.3-7.9); NEUT % 67.7 % (47.0-73.0); PLATELET COUNT AUTOMATED 211 10*3/uL (130-400); RED BLOOD COUNT 4.81 10*6/uL (4.10-5.10); RED CELL DISTRI WIDTH 13.3 % (0-14.5); WHITE BLOOD COUNT 4.9 10*3/uL (4.8-10.8)
[2024-03-10 12:05] LABS: POTASSIUM 4.6 mmol/L (3.4-5.1); TOTAL PROTEIN 7.4 gm/dL (6.0-8.0)
== END | disposition home or self-care (01) ==
LOC: LAB 10:55
PROVIDERS: ATTEND Nurse Practitioner Family
DX: Z13.29 Encounter for screening for other suspected endocrine disorder (principal); Z13.1 Encounter for screening for diabetes mellitus; E78.5 Hyperlipidemia, unspecified; D50.9 Iron deficiency anemia, unspecified; G62.9 Polyneuropathy, unspecified; E66.01 Morbid (severe) obesity due to excess calories

== ENCOUNTER → 2024-04-21 | Outpatient (CLI) | payer OTHER ==
[2024-04-21 11:29] LABS: HEMATOCRIT 42.6 % (37.0-47.0); MEAN CELL VOLUME 92.8 fl (81.0-99.0); MEAN CORPUSCULAR HGB 31.4 pg (27.0-31.0); MEAN CORPUSCULAR HGB CONC 33.8 g/dl (33.0-37.0); MEAN PLATELET VOLUME 11.1 fl (9.6-12.3); RED BLOOD COUNT 4.59 10*6/uL (4.10-5.10); RED CELL DISTRI WIDTH 12.6 % (0-14.5); WHITE BLOOD COUNT 4.7 10*3/uL (4.8-10.8)
[2024-04-21 11:55] LABS: POTASSIUM 4.6 mmol/L (3.4-5.1); TOTAL PROTEIN 7.1 gm/dL (6.0-8.0)
== END | disposition home or self-care (01) ==
LOC: LAB 11:00
PROVIDERS: ATTEND Nurse Practitioner Family
DX: K76.0 Fatty (change of) liver, not elsewhere classified (principal); N28.9 Disorder of kidney and ureter, unspecified

== ENCOUNTER → 2024-05-19 | Outpatient (CLI) | payer OTHER ==
[2024-05-19 11:15] LABS: BASO % 0.2 % (0.0-1.0); EOS # 0.1 10*3/uL (0.0-0.4); EOS % 1.5 % (1.0-4.0); HEMATOCRIT 40.7 % (37.0-47.0); LYMPH # 1.1 10*3/uL (1.3-4.4); LYMPH % 23.7 % (27.0-41.0); MEAN CELL VOLUME 92.7 fl (81.0-99.0); MEAN CORPUSCULAR HGB 32.1 pg (27.0-31.0); MEAN CORPUSCULAR HGB CONC 34.6 g/dl (33.0-37.0); MEAN PLATELET VOLUME 10.8 fl (9.6-12.3); MONO # 0.3 10*3/uL (0.1-1.0); MONO % 6.8 % (3.0-9.0); NEUT # 3.1 10*3/uL (2.3-7.9); NEUT % 67.4 % (47.0-73.0); PLATELET COUNT AUTOMATED 207 10*3/uL (130-400); RED BLOOD COUNT 4.39 10*6/uL (4.10-5.10); RED CELL DISTRI WIDTH 13.4 % (0-14.5); WHITE BLOOD COUNT 4.6 10*3/uL (4.8-10.8)
[2024-05-19 11:17] LABS: BILIRUBIN Negative (Negative); BLOOD Trace-Lysed (Negative); CLARITY Turbid (Clear); COLOR Yellow (Yellow); GLUCOSE Negative (Negative); KETONE Trace (Negative); LEUKO ESTERASE 1+ (Negative); NITRITE Negative (Negative)
[2024-05-19 11:29] LABS: BACTERIA 4+; EPITHELIAL CELLS 31-40
[2024-05-19 11:43] LABS: POTASSIUM 3.8 mmol/L (3.4-5.1)
[2024-05-19 11:44] LABS: URINE CREATININE RANDOM 340.54 mg/dL
== END | disposition home or self-care (01) ==
LOC: LAB 10:50
PROVIDERS: ATTEND Internal Medicine Nephrology
DX: N18.30 Chronic kidney disease, stage 3 unspecified (principal); N25.81 Secondary hyperparathyroidism of renal origin; D63.1 Anemia in chronic kidney disease

== ENCOUNTER 2024-07-07 21:50 | Emergency (ER) | payer OTHER ==
[~2024-07-07] VITALS: Ht 182.8 cm; Wt 151.0 kg
[2024-07-07] MEDS ORDERED: BUSPAR5 MG PO (22:00)
[2024-07-07] MEDS ORDERED: METOPROLOL TART50 M1 PO (22:01)
[2024-07-07 22:32] LABS: BASO % 0.4 % (0.0-1.0); EOS # 0.1 10*3/uL (0.0-0.4); HEMATOCRIT 40.5 % (37.0-47.0); LYMPH # 1.4 10*3/uL (1.3-4.4); LYMPH % 30.8 % (27.0-41.0); MEAN CELL VOLUME 91.6 fl (81.0-99.0); MEAN CORPUSCULAR HGB 31.7 pg (27.0-31.0); MEAN CORPUSCULAR HGB CONC 34.6 g/dl (33.0-37.0); MEAN PLATELET VOLUME 11.4 fl (9.6-12.3); MONO # 0.4 10*3/uL (0.1-1.0); MONO % 8.6 % (3.0-9.0); NEUT # 2.6 10*3/uL (2.3-7.9); PLATELET COUNT AUTOMATED 235 10*3/uL (130-400); RED BLOOD COUNT 4.42 10*6/uL (4.10-5.10); RED CELL DISTRI WIDTH 12.7 % (0-14.5); WHITE BLOOD COUNT 4.5 10*3/uL (4.8-10.8)
[2024-07-07 22:53] LABS: POTASSIUM 3.9 mmol/L (3.4-5.1); TOTAL PROTEIN 7.1 gm/dL (6.0-8.0)
[2024-07-07] MEDS ORDERED: LORazepam 1 MG TAB PO ONE (23:05)
== END 2024-07-08 00:44 | disposition home or self-care (01) ==
LOC: ED 21:50
PROVIDERS: Internal Medicine
DX: F41.9 Anxiety disorder, unspecified (principal); I10 Essential (primary) hypertension; F32.A Depression, unspecified; J45.909 Unspecified asthma, uncomplicated; K21.9 Gastro-esophageal reflux disease without esophagitis; E78.00 Pure hypercholesterolemia, unspecified; F31.9 Bipolar disorder, unspecified; F17.200 Nicotine dependence, unspecified, uncomplicated; Z88.1 Allergy status to other antibiotic agents; Z88.5 Allergy status to narcotic agent; Z88.8 Allergy status to other drugs, medicaments and biological substances; Z98.890 Other specified postprocedural states; Z96.653 Presence of artificial knee joint, bilateral

== ENCOUNTER → 2024-09-15 | Outpatient (CLI) | payer OTHER ==
[~2024-09-15] MED LIST changes: +BUSPAR5 MG PO
[2024-09-15 11:18] LABS: BASO % 0.2 % (0.0-1.0); EOS # 0.1 10*3/uL (0.0-0.4); HEMATOCRIT 41.7 % (37.0-47.0); MEAN CELL VOLUME 89.9 fl (81.0-99.0); MEAN CORPUSCULAR HGB 30.8 pg (27.0-31.0); MEAN CORPUSCULAR HGB CONC 34.3 g/dl (33.0-37.0); MEAN PLATELET VOLUME 11.9 fl (9.6-12.3); MONO # 0.5 10*3/uL (0.1-1.0); NEUT # 2.8 10*3/uL (2.3-7.9); NEUT % 58.3 % (47.0-73.0); PLATELET COUNT AUTOMATED 274 10*3/uL (130-400); RED BLOOD COUNT 4.64 10*6/uL (4.10-5.10); RED CELL DISTRI WIDTH 12.1 % (0-14.5); WHITE BLOOD COUNT 4.7 10*3/uL (4.8-10.8)
[2024-09-15 11:26] LABS: BILIRUBIN Negative (Negative); BLOOD Negative (Negative); CLARITY Cloudy (Clear); COLOR Yellow (Yellow); GLUCOSE Negative (Negative); KETONE Trace (Negative); LEUKO ESTERASE 1+ (Negative); NITRITE Negative (Negative); PH 5.5 (4.5-8.0); SPECIFIC GRAVITY 1.025 (1.001-1.030)
[2024-09-15 11:43] LABS: POTASSIUM 4.1 mmol/L (3.4-5.1)
[2024-09-15 11:53] LABS: URINE CREATININE RANDOM 282.88 mg/dL
[2024-09-15 12:38] LABS: EPITHELIAL CELLS 16-20; RBC 0-2 rbc/hpf (0-2)
[2024-09-15 12:39] LABS: BACTERIA 1+
== END | disposition home or self-care (01) ==
LOC: LAB 10:45
PROVIDERS: ATTEND Nurse Practitioner Family
DX: N18.31 Chronic kidney disease, stage 3a (principal); E55.9 Vitamin D deficiency, unspecified; N25.81 Secondary hyperparathyroidism of renal origin; D63.1 Anemia in chronic kidney disease; Z79.899 Other long term (current) drug therapy

== ENCOUNTER 2025-03-26 16:02 | Emergency (ER) | payer OTHER ==
[~2025-03-26] VITALS: Ht 182.8 cm; Wt 149.7 kg
[2025-03-26] MEDS ORDERED: fentaNYL CITRATE/PF 50 MCG/ML SYRINGE IV ONE (16:25)
[2025-03-26] MEDS ORDERED: SODIUM CHLORIDE 0.9% 1,000 ML IV ONE (16:25)
[2025-03-26] MEDS ORDERED: Ondansetron Hydrochloride 4 MG/2 ML VIAL IV ONE (16:25)
[2025-03-26 16:40] LABS: BASO % 0.3 % (0.0-1.0); EOS # 0.1 10*3/uL (0.0-0.4); EOS % 2.4 % (1.0-4.0); HEMATOCRIT 38.3 % (37.0-47.0); MEAN CELL VOLUME 90.5 fl (81.0-99.0); MEAN CORPUSCULAR HGB 31.2 pg (27.0-31.0); MEAN CORPUSCULAR HGB CONC 34.5 g/dl (33.0-37.0); MEAN PLATELET VOLUME 10.9 fl (9.6-12.3); MONO # 0.4 10*3/uL (0.1-1.0); MONO % 6.3 % (3.0-9.0); NEUT # 4.1 10*3/uL (2.3-7.9); NEUT % 69.4 % (47.0-73.0); PLATELET COUNT AUTOMATED 228 10*3/uL (130-400); RED BLOOD COUNT 4.23 10*6/uL (4.10-5.10); RED CELL DISTRI WIDTH 13.1 % (0-14.5); WHITE BLOOD COUNT 5.9 10*3/uL (4.8-10.8)
[2025-03-26 16:59] LABS: POTASSIUM 4.4 mmol/L (3.4-5.1)
[2025-03-26 17:13] LABS: BILIRUBIN Negative (Negative); BLOOD 2+ (Negative); CLARITY Turbid (Clear); COLOR Dark Yellow (Yellow); GLUCOSE Negative (Negative); KETONE Trace (Negative); LEUKO ESTERASE 1+ (Negative); NITRITE Negative (Negative); SPECIFIC GRAVITY 1.025 (1.001-1.030)
[2025-03-26] MEDS ORDERED: TRAMADOL HCL50 MG PO (17:27)
[2025-03-26] MEDS ORDERED: LEVOFLOXACIN750 M2 PO (17:27)
[2025-03-26 17:40] LABS: BACTERIA 3+; EPITHELIAL CELLS TNTC
== END 2025-03-26 17:58 | disposition home or self-care (01) ==
LOC: ED 16:02
PROVIDERS: Emergency Medicine
DX: R07.89 Other chest pain (principal); N39.0 Urinary tract infection, site not specified; I12.9 Hypertensive chronic kidney disease with stage 1 through stage 4 chronic kidney disease, or unspecified chronic kidney disease; N18.9 Chronic kidney disease, unspecified; F31.9 Bipolar disorder, unspecified; F41.9 Anxiety disorder, unspecified; E78.5 Hyperlipidemia, unspecified; F17.200 Nicotine dependence, unspecified, uncomplicated; Z88.8 Allergy status to other drugs, medicaments and biological substances; Z88.5 Allergy status to narcotic agent; Z88.1 Allergy status to other antibiotic agents; Z79.82 Long term (current) use of aspirin; Z79.899 Other long term (current) drug therapy; Z98.890 Other specified postprocedural states; Z96.653 Presence of artificial knee joint, bilateral

== ENCOUNTER → 2025-04-27 | Outpatient (CLI) | payer OTHER ==
[~2025-04-27] MED LIST changes: +LEVOFLOXACIN750 M2 PO; +TRAMADOL HCL50 MG PO
[2025-04-27 11:47] LABS: BASO # 0.0 10*3/uL (0.0-0.1); BASO % 0.4 % (0.0-1.0); EOS # 0.1 10*3/uL (0.0-0.4); EOS % 2.6 % (1.0-4.0); MEAN CELL VOLUME 92.0 fl (81.0-99.0); MEAN CORPUSCULAR HGB 31.2 pg (27.0-31.0); MEAN PLATELET VOLUME 11.8 fl (9.6-12.3); MONO # 0.3 10*3/uL (0.1-1.0); MONO % 6.5 % (3.0-9.0); NEUT # 3.2 10*3/uL (2.3-7.9); NEUT % 67.9 % (47.0-73.0); NUCLEATED RED BLOOD CELL 0.0 % (0.0-0.0); NUCLEATED RED BLOOD CELL 0.0 10*3/uL (0.0-0.0); PLATELET COUNT AUTOMATED 208 10*3/uL (130-400); RED CELL DISTRI WIDTH 13.1 % (0-14.5)
[2025-04-27 11:50] LABS: BILIRUBIN Negative (Negative); BLOOD Negative (Negative); CLARITY Cloudy (Clear); COLOR Yellow (Yellow); KETONE Trace (Negative); LEUKO ESTERASE Trace (Negative); NITRITE Negative (Negative); PH 6.0 (4.5-8.0); SPECIFIC GRAVITY >= 1.030 (1.001-1.030); UROBILINOGEN 1.0 E.U./dl (0.0-1.0)
[2025-04-27 12:07] LABS: BACTERIA 2+; EPITHELIAL CELLS TNTC; RBC 0-2 rbc/hpf (0-2)
[2025-04-27 12:21] LABS: BUN 11.0 mg/dl (9-23)
[2025-04-27 12:26] LABS: VITAMIN D, 25-HYDROXY 61.0 ng/mL (30-100)
== END | disposition home or self-care (01) ==
LOC: LAB 11:02
PROVIDERS: ATTEND Nurse Practitioner Family
DX: N18.30 Chronic kidney disease, stage 3 unspecified (principal); D63.1 Anemia in chronic kidney disease; E55.9 Vitamin D deficiency, unspecified; N25.81 Secondary hyperparathyroidism of renal origin

== ENCOUNTER → 2025-06-14 | Outpatient (CLI) | payer OTHER ==
[~2025-06-14] MED LIST changes: +ALL DAY ALLERGY10 M2 PO; +Regadenoson 0.4 MG/5 ML SYR IV ONE; +SEROQUEL XR300 MG PO; +TRINTELLIX10 MG PO; +TRULICITY3 MG/0.5 M SQ; +Technetium Tc 99M Tetrofosmi 0.23 MG KIT IJ SCH
== END | disposition home or self-care (01) ==
LOC: CARD 05-31 08:00
PROVIDERS: ATTEND Internal Medicine Cardiovascular Disease
DX: I20.9 Angina pectoris, unspecified (principal); E66.9 Obesity, unspecified

== ENCOUNTER → 2025-10-24 | Outpatient (CLI) | payer OTHER ==
[~2025-10-24] MED LIST changes: -Regadenoson 0.4 MG/5 ML SYR IV ONE; -Technetium Tc 99M Tetrofosmi 0.23 MG KIT IJ SCH
[2025-10-24 07:49] LABS: BASO # 0.0 10*3/uL (0.0-0.1); BASO % 0.2 % (0.0-1.0); EOS # 0.2 10*3/uL (0.0-0.4); EOS % 3.4 % (1.0-4.0); MEAN CELL VOLUME 85.4 fl (81.0-99.0); MEAN CORPUSCULAR HGB 30.8 pg (27.0-31.0); MEAN PLATELET VOLUME 11.7 fl (9.6-12.3); MONO # 0.4 10*3/uL (0.1-1.0); MONO % 7.5 % (3.0-9.0); NEUT # 2.6 10*3/uL (2.3-7.9); NEUT % 54.4 % (47.0-73.0); NUCLEATED RED BLOOD CELL 0.0 % (0.0-0.0); NUCLEATED RED BLOOD CELL 0.0 10*3/uL (0.0-0.0); PLATELET COUNT AUTOMATED 195 10*3/uL (130-400); RED CELL DISTRI WIDTH 12.8 % (0-14.5)
[2025-10-24 07:51] LABS: BILIRUBIN Negative (Negative); BLOOD 1+ (Negative); CLARITY Turbid (Clear); COLOR Yellow (Yellow); KETONE Trace (Negative); LEUKO ESTERASE 2+ (Negative); NITRITE Negative (Negative); PH 6.0 (4.5-8.0); SPECIFIC GRAVITY >= 1.030 (1.001-1.030); UROBILINOGEN 1.0 E.U./dl (0.0-1.0)
[2025-10-24 08:16] LABS: BUN < 5 mg/dl (9-23)
[2025-10-24 08:59] LABS: VITAMIN D, 25-HYDROXY 46.2 ng/mL (30-100)
[2025-10-24 11:34] LABS: EPITHELIAL CELLS 31-40; RBC 31-40 rbc/hpf (0-2); WBC 41-50 wbc/hpf (0-5)
[2025-10-24 11:35] LABS: BACTERIA 4+; YEAST 2+
== END | disposition home or self-care (01) ==
LOC: LAB 07:26
PROVIDERS: ATTEND Nurse Practitioner Family
DX: N25.81 Secondary hyperparathyroidism of renal origin (principal); N18.30 Chronic kidney disease, stage 3 unspecified; D63.1 Anemia in chronic kidney disease; E55.9 Vitamin D deficiency, unspecified